=== PATIENT | male | born 1940 | race Two or more races ===

== ENCOUNTER → 2016-05-26 | Outpatient (CLI) | payer OTHER, MEDICAID | LOC: BHFA 13:15 | PROVIDERS: ATTEND Internal Medicine | DX: I48.91 Unspecified atrial fibrillation (principal); I25.10 Atherosclerotic heart disease of native coronary artery without angina pectoris ==

== ENCOUNTER → 2016-06-04 | Outpatient (CLI) | payer OTHER, MEDICAID | LOC: FIMAGING 13:05 | PROVIDERS: ATTEND Thoracic Surgery (Cardiothoracic Vascular Surgery) | DX: Z01.810 Encounter for preprocedural cardiovascular examination (principal); I25.10 Atherosclerotic heart disease of native coronary artery without angina pectoris; J98.4 Other disorders of lung; I48.91 Unspecified atrial fibrillation ==

== ENCOUNTER 2016-06-06 05:19 | Inpatient (IN) | payer OTHER, MEDICAID ==
[2016-06-04 15:35] LABS: % IMMATURE GRANULYOCYTES 0.5 % (0.0-1.1); ABSOLUTE IMMATURE GRANULOCYTES 0.05 10^3/uL (0.00-0.10); ADD DIFF? NO; ADD MORPH? NO; ADD SCAN? NO; ATYPICAL LYMPHOCYTE FLAG 0 (0-99); FRAGMENT RBC FLAG 0 (0-99); HEMATOCRIT 43.3 % (40.0-51.0); HEMOGLOBIN 14.4 g/dL (13.7-17.5); LEFT SHIFT FLG 0 (0-99); LIPEMIA HEMOLYSIS FLAG 80 (0-99); MEAN CELL HEMOGLOBIN CONCENTR. 33.3 g/dL (32.4-36.7); MEAN CELL VOLUME 87.1 fL (81.5-99.8); MEAN PLATELET VOLUME 10.2 fL (8.7-11.7); PLATELET CLUMPS FLAG 10 (0-99); PLATELET COUNT 257 10^3/uL (150-400); RED BLOOD CELL COUNT 4.97 10^6/uL (4.40-6.38); RED CELL DISTRIBUTION WIDTH 13.4 % (11.5-15.2)
[2016-06-04 15:40] LABS: ANION GAP 9 mEq/L (8-16); CALCIUM 9.8 mg/dL (8.5-10.4); CARBON DIOXIDE 25 mEq/l (22-31); CHLORIDE 103 mEq/L (97-110); CREATININE 0.6 mg/dL (0.7-1.3); GLOMERULAR FILTRATION RATE > 60; GLUCOSE 270 mg/dL (70-100); POTASSIUM 4.6 mEq/L (3.5-5.2); SODIUM 137 mEq/L (134-144)
[2016-06-04 17:35] LABS: HEMOGLOBIN A1C 11.7 % (4.0-6.0)
[2016-06-06] MEDS ORDERED: INSULIN REGULAR HUMAN 100 UNIT in NS 100 ML IV ONE (06:00)
[2016-06-06] MEDS ORDERED: MUPIROCIN 2% 22 GM OINT NS ONE (06:00)
[2016-06-06] MEDS ORDERED: MANNITOL 25% 12.5 GM/50 ML VIAL IV ONE (06:00)
[2016-06-06] MEDS ORDERED: ceFAZolin 2 GM/DEXTROSE 100 ML IV ONE (06:00)
[2016-06-06] MEDS ORDERED: NS 1,000 ML IV ONE (06:00)
[2016-06-06] MEDS ORDERED: LIDOCAINE 1% 5 ML SDV ID PRN (06:00)
[2016-06-06] MEDS ORDERED: PHENYLEPHRINE HCL 50 MG in NS 250 ML IV ONE (06:00)
[2016-06-06] MEDS ORDERED: CITRATE DEXTROSE SOLN 500 ML BAG MISC ONE (06:00)
[2016-06-06] MEDS ORDERED: AMINOCAPROIC ACID 5 GM/20 ML VIAL IV ONE (06:00)
[2016-06-06] MEDS ORDERED: NOREPINEPHRINE BITARTRATE 16 MG in NS 250 ML IV ONE (06:00)
[2016-06-06] MEDS ORDERED: SODIUM BICARBONATE 20 MEQ, LIDOCAINE 1% 10 ML in NORMOSOL-R 1,000 ML MISC ONE (06:00)
[2016-06-06] MEDS ORDERED: niCARdipine/NACL 200 ML IV SCH (06:00)
[2016-06-06] MEDS ORDERED: PROTAMINE SULFATE 50 MG/5 ML VIAL IVP ONE (06:20)
[2016-06-06] MEDS ORDERED: MILRINONE/DEXTROSE/100 ML BAG IV ONE (06:20)
[2016-06-06] MEDS ORDERED: ALBUMIN 5% 250 ML BOTTLE IV ONE (06:20)
[2016-06-06] MEDS ORDERED: LIDOCAINE 2% 100 MG/5 ML SYR IVP ONE (06:20)
[2016-06-06] MEDS ORDERED: DOPamine/DEXTROSE/250 ML BAG IV ONE (06:20)
[2016-06-06] MEDS ORDERED: NA BICARBONATE 50 MEQ/50 ML VIAL ONE (06:20)
[2016-06-06] MEDS ORDERED: POTASSIUM Cl (KCl) 20 MEQ/50 ML BAG IV ONE (06:20)
[2016-06-06] MEDS ORDERED: AMINOCAPROIC ACID 5 GM/20 ML VIAL ONE (06:20)
[2016-06-06] MEDS ORDERED: CALCIUM CHLORIDE 1 GM/10 ML INJ ONE (06:20)
[2016-06-06] MEDS ORDERED: niCARdipine/NACL/200 ML BAG IV ONE (06:20)
[2016-06-06] MEDS ORDERED: methylPREDNISolone SOD SUCC 1 GM/8 ML VIAL ONE (06:21)
[2016-06-06] MEDS ORDERED: ADENOSINE 6 MG/2 ML VIAL ONE (06:21)
[2016-06-06] MEDS ORDERED: AMIODARONE HCL 150 MG/3 ML VIAL ONE (06:21)
[2016-06-06] MEDS ORDERED: MAGNESIUM SULFATE 1 GM/2 ML VIAL ONE (06:21)
[2016-06-06] MEDS ORDERED: ceFAZolin 1 GM VIAL ONE (06:22)
[2016-06-06] MEDS ORDERED: HEPARIN 10,000 UNIT/10 ML MDV ONE (06:22)
[2016-06-06] MEDS ORDERED: LIDOCAINE 1% 5 ML SDV ONE (06:52)
[2016-06-06] MEDS ORDERED: SKIN ADHESIVE (DERMABOND) 1 EACH TP ONE (07:08)
[2016-06-06] MEDS ORDERED: PROPOFOL/EMULSION 500 MG/50 ML BOTTLE IV ONE (07:09)
[2016-06-06] MEDS ORDERED: fentaNYL 250 MCG/5 ML INJ ONE ×2 (07:09→09:18)
[2016-06-06] MEDS ORDERED: CITRATE DEXTROSE SOLN 500 ML BAG ONE (07:09)
[2016-06-06] MEDS ORDERED: MIDAZOLAM 2 MG/2 ML VIAL ONE (07:13)
[2016-06-06] MEDS ORDERED: ISOFLURANE 100 ML BOTTLE IH ONE (11:06)
[2016-06-06] MEDS ORDERED: fentaNYL 100 MCG/2 ML INJ ONE (12:15)
[2016-06-06] MEDS ORDERED: MINERAL OIL 10 ML VIAL TP ONE (12:27)
[2016-06-06] MEDS ORDERED: POLYETHYLENE GLYCOL 3350 17 GM PKT PO PRN (12:30)
[2016-06-06] MEDS ORDERED: ONDANSETRON 4 MG/2 ML VIAL IVP PRN (12:30)
[2016-06-06] MEDS ORDERED: MEPERIDINE 25 MG/ML SYR IVP PRN (12:30)
[2016-06-06] MEDS ORDERED: ONDANSETRON DISINTEGRATING 4 MG TAB PO PRN (12:30)
[2016-06-06] MEDS ORDERED: NS 1,000 ML IV SCH (12:30)
[2016-06-06] MEDS ORDERED: ACETAMINOPHEN 650 MG SUPP PR PRN (12:30)
[2016-06-06] MEDS ORDERED: PANTOPRAZOLE SODIUM 40 MG in NS 100 ML IV ONE (12:30)
[2016-06-06] MEDS ORDERED: CEPACOL LOZENGE PO PRN (12:30)
[2016-06-06] MEDS ORDERED: INSULIN REGULAR HUMAN 100 UNIT in NS 100 ML IV SCH (12:30)
[2016-06-06] MEDS ORDERED: BISACODYL 10 MG SUPP PR PRN (12:30)
[2016-06-06] MEDS ORDERED: PROPOFOL 200 MG/20 ML VIAL ONE (12:30)
[2016-06-06] MEDS ORDERED: D50W 25 GM/50 ML SYR IVP PRN (12:30)
[2016-06-06] MEDS ORDERED: MAGNESIUM HYDROXIDE 30 ML UDCUP PO PRN (12:30)
[2016-06-06] MEDS ORDERED: MAGNESIUM SULF 2 GM/WATER 50 ML IV ONE (12:30)
[2016-06-06] MEDS ORDERED: LACTULOSE 20 GM/30 ML UDCUP PO PRN (12:30)
[2016-06-06] MEDS ORDERED: SODIUM CL NASAL 45 ML BTL EACHNARE PRN (12:30)
[2016-06-06] MEDS ORDERED: METOCLOPRAMIDE 10 MG/2 ML VIAL IVP PRN (12:30)
[2016-06-06] MEDS ORDERED: POTASSIUM Cl (KCl) 50 ML IV PRN (12:30)
--- NOTE | 2016-06-06 13:18 | POSTOPPROG ---
Post Op Note Date of Operation: 06/06/16 Surgeon: Conrado Brown Shipfitter: Cindy Anesthesiologist: Marcos Anesthesia: GET(General Endotracheal) Pre-op Diagnosis: MR, morbid obesity, COPD Post-op Diagnosis: same with disruption dome of LA Procedure: MVR #27 Magna, reconstruct LA dome w bovine pericardium, close PFO Inf/Abcess present in the surg proc area at time of surgery?: No EBL: 100-500 Complications: LA dome disruption w retraction Drains: Other (3 blakes)
[2016-06-06] MEDS: fentaNYL 100 MCG/2 ML INJ IVP PRN (13:50)
[2016-06-06 13:54] LABS: BASE EXCESS -6.7 mEq/L (-2.5-2.5); BICARBONATE 21 mEq/L (22-26); MEASURED OXYGEN SATURATION 98 % (92-95); PCO2 56 mmHg (34-38); PO2 138 mmHg (65-75); TCO2 23 mEq/L (23-27)
--- NOTE | 2016-06-06 14:01 | GOP ---
[f rep st] OPERATIVE REPORT DATE OF OPERATION: 06/06/2016 SURGEON: Conrado Brown DO CREDIT REVIEW OFFICER: Gibran White PA-C. ANESTHESIOLOGIST: Vivek Rodríguez MD. PREOPERATIVE DIAGNOSIS: 1. Severe mitral insufficiency, asymptomatic. 2. Morbid obesity. 3. Chronic obstructive pulmonary disease. 4. Undiagnosed diabetes mellitus. POSTOPERATIVE DIAGNOSIS: 1. Severe mitral insufficiency, asymptomatic. 2. Morbid obesity. 3. Chronic obstructive pulmonary disease. 4. Undiagnosed diabetes mellitus. 5. Disruption of the left atrial dome. PROCEDURE PERFORMED: 1. Mitral valve replacement, chordal sparing with a #27 Magna bioprosthesis. 2. Closure of patent foramen ovale. 3. Bovine pericardial reconstruction of the dome of the left atrium and interatrial septum. FINDINGS: Patient was noted to have severe mitral insufficiency with symptoms of dyspnea on exertio n which had progressed. He was referred for surgical intervention. He appeared to have a small declan ral valve, without thickening with apparent chordal rupture of at least P1 and possibly P2 and P3. He was consented for surgery, with the interpreters brought to the operating room. He was intubated . Monitoring lines were placed by anesthesia including transesophageal echo. He was prepped and dr flako in sterile classical manner. DESCRIPTION OF PROCEDURE: Initially we planned to do a right anterior thoracotomy approach, minimal ly invasive. However his CT scan revealed significant descending thoracic aorta plaque as well as p laque in the ascending aorta, and because of his markedly distended abdomen from obesity and concern about exposure with diaphragm on this morbidly obese gentleman. For that reason, we proceeded with sternotomy. The patient's chest was opened. He was heparinized. The aorta on interrogation with intraoperative echo revealed an anterior plaque at approximately the distal segment of segment 2 and the proximal segment of segment 1, and also into the arch. Under echo guidance, an arterial site w as cannulated on the aorta away from the plaque where it was thin and pliable without difficulty. A long arterial plaque was placed distal to the left subclavian to avoid any water or any sandblastin g of the arch with potential embolization and stroke. Bicaval cannulas were placed with great diffi culty due to the patient's markedly increased AP diameter and marked abdominal distention. Exposure of the heart was very, very difficult. Left pericardial reflection was taken down to allow the hea rt to drop into the left chest for assistance in exposure and the right pericardium was tacked up un kelsey tension in order to rotate the heart leftward to facilitate that. Even with that exposure of th e pulmonary veins, it was very difficult. After cannulation, cardiopulmonary bypass was begun. Inninoska danya I was going to do fibrillatory arrest with exposure through the interatrial septum. We coole d the patient appropriately and when we fibrillated, he was placed in Trendelenburg. The caval tape s were placed around the both caval cannulas. The right atrium was opened and the interatrial septu m through the PFO which was patent and quite large was extended down onto the dome of the left atriu m. Retraction sutures were placed in a very friable thin-walled interatrial septum, particular up a round the aorta where the dome was quite thin. We then placed retractors exposing the valve with gr eat difficulty. 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 He had rup tured chordae to P1 with elongation of chordae to P2 and P3. Initially I attempted chordal reconstr uction of P1, however exposure was so difficult that I was concerned about adequate placement of cj uloplasty sutures. And for that reason, decided to replace it at which point, rewarming was begun. With great difficulty, we exposed the mitral valve and placed circumferential pledgeted mattress lilly tures in the anulus, and sized it for a 27 valve. During retraction, the retractor lip which had an upward lip to it, avulsed the dome of the left atrium from the aorta and from the mitral anulus. T his made exposure extremely difficult and time consuming. The valve was seated without difficulty. I then used a bovine pericardial patch to reconstruct the dome of the left atrium and the base of t he left atrium to the mitral valve anulus apparatus with bovine pericardial reinforcement on both si adonis. We then extended that patch on out to the dome of the left atrium and back toward the interatr ial septum. This was continued onto the septum and patched appropriately without difficulty. We th en had some separation of the right atrial edges. A 2nd patch was used to reconstruct the right atr ial portion adjacent to the aorta, bringing it back, tapering it at the appendage. Right atrium was then closed with the crossclamp off, at that point, with suction on the ascending aortic vent and i ntermittent aspiration through the LV apex. No bleeding was encountered. There was no shunt betwee n the atrial septa and no perivalvular leak with good function of the valve and good biventricular f unction. He was then easily weaned from bypass. The heparin was reversed with protamine. The rafa ji was removed and oversewn. Two ventricular pacing wires, 2 pleural and 1 mediastinal drain were placed. The thymic fat and pericardium were closed. Chest was closed with a Robicsek weave due to his morbid obesity, COPD with evidence of chronic lung disease in both pleura with some bullae and s ignificant osteoporosis. He has returned to the ICU in stable condition. /[id number]/MODL
[2016-06-06 14:07] LABS: O2 CONCENTRATIION 100 % (0-100); P/F RATIO 138 RATIO; SIMV YES
[2016-06-06 14:08] LABS: PATIENT RATE 14; PIP 253; PRESSURE SUPPORT 7
[2016-06-06] MEDS ORDERED: NS 500 ML IV PRN (14:11)
--- NOTE | 2016-06-06 14:16 | GCON ---
[f rep st] CONSULTATION HELP DESK COORDINATOR CONSULTATION. HISTORY OF PRESENT ILLNESS: Patient examined postoperatively after receiving a mitral valve replace ment. The patient is a 75-year-old white male, with a past medical history including diabetes, hype rlipidemia, hypertension, mitral regurg, and prostate cancer. He is again examined postoperatively after receiving a mitral valve replacement. The patient is currently sedated on mechanical ventilat ion. All history is gleaned from the medical record. Currently, he is resting comfortably. Blood pressure is currently stable. PAST MEDICAL HISTORY: Again significant for diabetes, hyperlipidemia, hypertension, mitral regurg, left anterior fascicular block, and prostate cancer. PAST SURGICAL HISTORY: Prostatectomy. ALLERGIES: No known to medications. MEDICATIONS: At home include aspirin, Humalog, Lantus, Lipitor, lisinopril/hydrochlorothiazide, mec lizine, metformin, Norvasc, pantoprazole, ranitidine, tramadol, and Vicodin. SOCIAL HISTORY: Previous smoker, none for many years. No significant alcohol use. He has excellen t family support. PHYSICAL EXAM: VITAL SIGNS: Blood pressure is 129/61, pulse is 64, respirations 14, temperature is afebrile. Oxygen saturation is 100% on mechanical ventilation. GENERAL: He is a well-developed, well-nourished, elderly male, who is resting comfortably in no acute distress. HEENT: Eyes VANESSA EOM I. Throat, endotracheal tube is in good position. NECK: Supple. No cervical adenopathy. HEART: Regular rate and rhythm with a 2/6 systolic murmur at the left sternal border, without radiation. LUNGS: Diminished breath sounds but no wheeze. ABDOMEN: Soft, nontender. Bowel sounds are presen t in all 4 quadrants. EXTREMITIES: There is no clubbing, cyanosis, or edema. LABORATORIES: White count is 9.7, hemoglobin 14, hematocrit 43, platelet count 257. Sodium 137, po tassium 4.6, chloride 103, CO2 is 25, BUN 19, creatinine 0.6, glucose is 270. IMPRESSION: 1. Status post mitral valve replacement. 2. Respiratory failure. Stable on mechanical ventilation. 3. Hypertension. 4. Diabetes. RECOMMENDATIONS: 1. Wean from mechanical ventilation as tolerated. 2. DVT and PE prophylaxis. Holding anticoagulation for now. 3. Stress ulcer prophylaxis. 4. Aggressive blood sugar control. 5. Out of bed when possible. 6. Early ambulation. 7. PT and OT. /[id number]/MODL
[2016-06-06] MEDS ORDERED: SODIUM BICARBONATE 50 MEQ/50 ML SYR ONE (14:19)
[2016-06-06] MEDS ORDERED: SODIUM BICARBONATE 50 MEQ/50 ML SYR IV ONE (14:30)
[2016-06-06] MEDS: ALBUMIN 5% 250 ML IV PRN ×4 (14:40→19:22)
[2016-06-06 15:20] LABS: BICARBONATE 20 mEq/L (22-26); MEASURED OXYGEN SATURATION 100 % (92-95); PCO2 35 mmHg (34-38); PO2 237 mmHg (65-75); TCO2 21 mEq/L (23-27)
[2016-06-06 15:21] LABS: O2 CONCENTRATIION 100 % (0-100); P/F RATIO 237 RATIO; PATIENT RATE 22; PIP 46; PRESSURE SUPPORT 7; SIMV YES
[2016-06-06] MEDS: CALCIUM CHLORIDE 1 GM/10 ML INJ IV ONE ×2 (16:00→17:19)
[2016-06-06] MEDS: KETOROLAC 15 MG/1 ML SDV IVP SCH ×3 (16:29→23:49)
[2016-06-06] MEDS ORDERED: ALBUMIN 5% 250 ML IV ONE (16:30)
[2016-06-06 18:01] LABS: BASE EXCESS -2.5 mEq/L (-2.5-2.5); BICARBONATE 21 mEq/L (22-26); MEASURED OXYGEN SATURATION 97 % (92-95); PCO2 31 mmHg (34-38); PO2 88 mmHg (65-75); TCO2 22 mEq/L (23-27)
[2016-06-06 18:02] LABS: O2 CONCENTRATIION 40 % (0-100); P/F RATIO 220 RATIO; SIMV YES
[2016-06-06 18:03] LABS: PATIENT RATE 22; PIP 23.9; PRESSURE SUPPORT 7
[2016-06-06 19:38] LABS: BASE EXCESS -1.8 mEq/L (-2.5-2.5); BICARBONATE 21 mEq/L (22-26); MEASURED OXYGEN SATURATION 98 % (92-95); PCO2 30 mmHg (34-38); PO2 105 mmHg (65-75); TCO2 22 mEq/L (23-27)
[2016-06-06 19:39] LABS: END TIDAL CO2 24; O2 CONCENTRATIION 40 % (0-100); P/F RATIO 263 RATIO; PRESSURE SUPPORT 7; SIMV YES
[2016-06-06] MEDS: MUPIROCIN 2% 22 GM OINT NS SCH (21:02)
[2016-06-06] MEDS: GABAPENTIN 300 MG CAP PO SCH (21:03)
[2016-06-06 21:17] LABS: BASE EXCESS -2.2 mEq/L (-2.5-2.5); BICARBONATE 21 mEq/L (22-26); MEASURED OXYGEN SATURATION 94 % (92-95); PCO2 34 mmHg (34-38); PO2 75 mmHg (65-75); TCO2 22 mEq/L (23-27)
[2016-06-06 21:19] LABS: END TIDAL CO2 28; O2 CONCENTRATIION 40 % (0-100); P/F RATIO 188 RATIO; PRESSURE SUPPORT 7; SIMV YES
[2016-06-06 23:03] LABS: HEMATOCRIT 30.2 % (40.0-51.0); MEAN CELL HEMOGLOBIN 28.6 pg (27.9-34.1); MEAN CELL HEMOGLOBIN CONCENTR. 33.1 g/dL (32.4-36.7); MEAN CELL VOLUME 86.3 fL (81.5-99.8); RED BLOOD CELL COUNT 3.5 10^6/uL (4.40-6.38); RED CELL DISTRIBUTION WIDTH 14.2 % (11.5-15.2)
[2016-06-06] MEDS ORDERED: ceFAZolin 2 GM/DEXTROSE 100 ML IV SCH (23:30)
[2016-06-06] MEDS: ceFAZolin 2 GM in D5W 100 ML IV SCH (23:49)
[2016-06-06] MEDS: DEXMEDETOMIDINE HCL 400 MCG in NS 100 ML IV SCH (23:50)
[2016-06-07 05:28] LABS: % IMMATURE GRANULYOCYTES 0.5 % (0.0-1.1); ABSOLUTE IMMATURE GRANULOCYTES 0.07 10^3/uL (0.00-0.10); ADD DIFF? NO; ADD MORPH? NO; ADD SCAN? NO; ATYPICAL LYMPHOCYTE FLAG 10 (0-99); FRAGMENT RBC FLAG 0 (0-99); HEMATOCRIT 30.9 % (40.0-51.0); HEMOGLOBIN 9.9 g/dL (13.7-17.5); LEFT SHIFT FLG 10 (0-99); LIPEMIA HEMOLYSIS FLAG 80 (0-99); MEAN CELL HEMOGLOBIN 29.1 pg (27.9-34.1); MEAN CELL VOLUME 90.9 fL (81.5-99.8); MEAN PLATELET VOLUME 10.4 fL (8.7-11.7); PLATELET CLUMPS FLAG 10 (0-99); PLATELET COUNT 171 10^3/uL (150-400); RED CELL DISTRIBUTION WIDTH 14.5 % (11.5-15.2)
[2016-06-07] MEDS: fentaNYL 100 MCG/2 ML INJ IVP PRN ×2 (05:30→06:54)
[2016-06-07 05:38] LABS: INR 1.36 (0.83-1.16); PROTIME(PATIENT) 16.8 SEC (12.0-15.0)
[2016-06-07 05:41] LABS: BASE EXCESS -2.9 mEq/L (-2.5-2.5); BICARBONATE 21 mEq/L (22-26); MEASURED OXYGEN SATURATION 95 % (92-95); PCO2 37 mmHg (34-38); PO2 80 mmHg (65-75); TCO2 22 mEq/L (23-27)
[2016-06-07 05:42] LABS: CPAP YES; END TIDAL CO2 29; O2 CONCENTRATIION 40 % (0-100); P/F RATIO 200 RATIO; PATIENT RATE 23; PRESSURE SUPPORT 7
[2016-06-07 05:45] LABS: ANION GAP 6 mEq/L (8-16); CARBON DIOXIDE 21 mEq/l (22-31); CHLORIDE 115 mEq/L (97-110); CREATININE 0.8 mg/dL (0.7-1.3); GLOMERULAR FILTRATION RATE > 60; GLUCOSE 133 mg/dL (70-100); POTASSIUM 4.4 mEq/L (3.5-5.2); SODIUM 142 mEq/L (134-144)
[2016-06-07] MEDS: KETOROLAC 15 MG/1 ML SDV IVP SCH ×3 (05:49→18:23)
[2016-06-07] MEDS: HEPARIN 5,000 UNIT/0.5 ML SYR SC SCH ×3 (05:50→22:00)
[2016-06-07] MEDS: ceFAZolin 2 GM in D5W 100 ML IV SCH ×3 (05:50→22:05)
--- NOTE | 2016-06-07 07:21 | SOAPPROG ---
SOAP Progress Note Assessment/Plan: POD#1 MV replacement with #27 Magna bioprosthesis with chordal sparing, closure PFO, reconstruction of left atrium dome and intra-atrial septum with bovine pericardium Severe symptomatic MR s/p MV replacement with bioprosthesis, closure PFO, LA dome and intra-atrial septum disruption with reconstruction. Weaned from CPB without need for inotropes/pressors/pacing or blood product transfusion. Low- dose Levophed started in ICU for low BP. Tolerated CPAP this am. - Plan for extubation this AM - Wean Levophed as tolerated - AL out once Levo off. FC out now. - CT to suction remain on suction d/t intermittent pleural air leak - Coumadin tonight, goal 2-3 x 3 months pending stable rhythm Acute blood loss anemia - Stable, no blood products transfused DM, poorly uncontrolled with neuropathy - Insulin gtt for now with further mgmt as per IM - Nutrition consult - Continue gabapentin 06/07/16 13:49 Subjective: Comfortable. Waiting for his hearing aids. Objective: Vital Signs Temp Pulse Resp BP Pulse Ox 38 C 80 21 H 100/52 L 94 06/07/16 06:00 06/07/16 06:00 06/07/16 06:00 06/07/16 06:00 06/07/16 06:00 Laboratory Results 06/07/16 05:15 06/07/16 05:15 06/06/16 06/07/16 06/08/16 05:59 05:59 05:59 Intake Total 1596 Output Total 1740 Balance -144 PT 16.8 SEC (12.0-15.0) H 06/07/16 05:15 INR 1.36 (0.83-1.16) H 06/07/16 05:15 Physical Exam - Physical Exam General Appearance: no apparent distress, obese EENT: No scleral icterus (R), No scleral icterus (L) Neck: normal inspection Respiratory: chest non-tender, lungs clear, No respiratory distress Cardiac/Chest: regular rate, rhythm, 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
[2016-06-07] MEDS: DEXMEDETOMIDINE HCL 400 MCG in NS 100 ML IV SCH (07:33)
[2016-06-07 08:51] LABS: POTASSIUM 4.4 mEq/L (3.5-5.2)
[2016-06-07] MEDS ORDERED: ASPIRIN 81 MG CHEWABLE TAB TUBE PRN (09:00)
--- NOTE | 2016-06-07 09:07 | PDINTPN ---
De Ionizer Operator Progress Note Assessment/Plan: Assessment/Plan: * S/P MV replacement * Resp failure-weaning parameters good. CPAP trial in progress -anticipate extubation today. -Anesthesia will be in attendance secondary to difficult airway * Probable NASIR * DM-continue aggressive BS control * HTN * VTE proph * Stress ulcer proph * Nutrition-assess post extubation Case discussed with RT and nursing 35 min of critical care time spent with patient Subjective: Awake and alert Objective: Vital Signs Temp Pulse Resp BP Pulse Ox 38.1 C 66 22 H 110/49 L 96 06/07/16 09:00 06/07/16 09:00 06/07/16 09:00 06/07/16 09:00 06/07/16 09:00 Laboratory Results 06/07/16 05:15 06/06/16 06/07/16 06/08/16 05:59 05:59 05:59 Intake Total 1596 Output Total 1740 120 Balance -144 -120 PT 16.8 SEC (12.0-15.0) H 06/07/16 05:15 INR 1.36 (0.83-1.16) H 06/07/16 05:15 CXR-reviewed by myself. ETT okay. CT's okay. - Time Spent With Patient Time Spent With Patient: 35 Physical Exam - Physical Exam General Appearance: alert, no apparent distress EENT: PERRL/EOMI, normal ENT inspection, ET tube Neck: non-tender, full range of motion Respiratory: crackles (few basilar), No respiratory distress, No stridor, No wheezing Cardiac/Chest: normal peripheral pulses, regular rate, rhythm, systolic murmur Peripheral Pulses: 2+: carotid (R), carotid (L), femoral (R), femoral (L), dorsalis-pedis (R), dorsalis-pedis (L) Abdomen: normal bowel sounds, non-tender, soft Male Genitalia: deferred Rectal: deferred Skin: normal color, warm/dry Extremities: normal range of motion, non-tender Neuro/Psych: alert ICD10 Worksheet Patient Problems: Problems Problem Status Onset Acute blood loss anemia Acute S/P mitral valve replacement with bioprosthetic valve Acute ~06/06/16 Severe mitral regurgitation Acute
[2016-06-07 09:31] LABS: BASE EXCESS -3.4 mEq/L (-2.5-2.5); BICARBONATE 21 mEq/L (22-26); MEASURED OXYGEN SATURATION 98 % (92-95); PCO2 35 mmHg (34-38); PO2 94 mmHg (65-75); TCO2 22 mEq/L (23-27)
[2016-06-07 09:57] LABS: CPAP YES; O2 CONCENTRATIION 40 % (0-100); P/F RATIO 235 RATIO
[2016-06-07 09:58] LABS: PATIENT RATE 24; PRESSURE SUPPORT 7
[2016-06-07] MEDS ORDERED: D50W 25 GM/50 ML SYR IVP PRN (12:15)
[2016-06-07] MEDS: ASPIRIN 81 MG CHEWABLE TAB PO SCH (12:15)
[2016-06-07] MEDS: PANTOPRAZOLE SODIUM 40 MG TAB PO SCH (12:15)
[2016-06-07] MEDS: MUPIROCIN 2% 22 GM OINT NS SCH ×2 (12:16→22:00)
[2016-06-07] MEDS: INSULIN GLARGINE 100 UNITS/ML SYRINGE SC SCH ×2 (13:58→22:00)
[2016-06-07] MEDS: traMADol 50 MG TAB PO PRN ×3 (15:27→22:00)
--- NOTE | 2016-06-07 15:35 | GCON ---
[f rep st] CONSULTATION DATE OF CONSULTATION: 06/07/2016 REFERRING PHYSICIAN: Conrado Brown DO REASON FOR CONSULTATION: Postoperative glycemic control. HISTORY OF PRESENT ILLNESS: This is a 75-year-old male, who is postoperative day one mitral valve r eplacement and closure of a patent foramen ovale, who I have been asked to see for postoperative gly cemic control. The patient has a long-standing history of type 2 diabetes. The patient was seen with a [facility] park interpreter present. The patient tells me that he has been compliant with his home insulin reg polo which consists of 30 units of glargine at bedtime and 30 units of lispro before meals. He also takes metformin. The patient is followed at a community clinic where they have been having trouble getting his sugars under control. He says over the past few months his blood sugars have been in th e 200 to 300 range during the day despite his insulin administration. His fasting morning blood sug ar is usually between 90 and 110. He states he is compliant with a diabetic diet. During his hospital stay, a hemoglobin A1c was done which was significantly elevated at 11.7. The p atient does seem to be rather eager to get better control of his sugars and has been referred to an circle edger by his primary care provider, but has not yet established care with them. PAST MEDICAL HISTORY: 1. Diabetes mellitus. 2. Hyperlipidemia. 3. Hypertension. 4. Severe mitral regurgitation. 5. Left anterior fascicular block. 6. Prostate cancer. PAST SURGICAL HISTORY: Prostatectomy. MEDICATIONS: Home medications were reviewed. Refer to [employer] for details. ALLERGIES: No known drug allergies. SOCIAL HISTORY: The patient does have a history of tobacco use. He denies any alcohol or illicit d rug use. FAMILY HISTORY: Reviewed and noncontributory. REVIEW OF SYSTEMS: A comprehensive 10-point review of systems was done and is negative except for a s mentioned in the HPI. PHYSICAL EXAM: VITAL SIGNS: Blood pressure 105/47, pulse 66, respiratory rate 20, O2 saturation 95 % on 3 L, temperature 38.2. GENERAL: No acute distress. HEAD: Normocephalic, atraumatic. Eyes a re PERRLA. Sclerae anicteric. MOUTH: Moist mucous membranes. NECK: Supple. No lymphadenopathy. CARDIOVASCULAR: S1-S2 with muffled heart sounds. A sternal scar is closed without signs of infec tion. PULMONARY: Lungs are clear with diminished breath sounds in bilateral bases. No wheezes, ra les, or rhonchi. ABDOMEN: Soft, with hypoactive bowel sounds. There is no guarding or rebound ten derness. EXTREMITIES: No clubbing or cyanosis. NEURO: Cranial nerves 2-12 grossly intact. No fo santiago motor or sensory deficits. SKIN: Clear, no rashes. DIAGNOSTICS: WBC is 13.22, hemoglobin 9.9, hematocrit 30.9, platelets 171. INR 1.36, sodium 142, p otassium 4.4, chloride 115, CO2 21, BUN 21, creatinine 0.8, glucose 133, hemoglobin A1c was 11.7. T he patient's point of care glucose has ranged from 129 to a high of 232 postoperatively. Chest x-ra y done today shows a reposition right internal jugular line with bibasilar atelectasis. ASSESSMENT AND PLAN: This is a 75-year-old male, postoperative day one mitral valve replacement and closure of a patent foramen ovale who I have been asked to see for: 1. Uncontrolled diabetes mellitus: The patient has been on an insulin drip postoperatively. The p atient is just now getting ready to eat. At this point, we will transition the patient back to a lilly bcu insulin regime. Will resume his home dose of glargine at 30 units daily and continue preprandia l insulin with correctional insulin as indicated. Will hold his metformin for at least one more day in the postoperative setting to ensure he continues to improve. Thank you for allowing me to participate in the care of the patient. The hospitalist service will c julia to follow along with you. /[id number]/MODL
[2016-06-07] MEDS ORDERED: WARFARIN SODIUM 5 MG TAB PO ONE (16:00)
[2016-06-07] MEDS: INSULIN LISPRO 100 UNIT/ML SC SCH ×2 (18:22→18:23)
[2016-06-07] MEDS: HYDROCODONE/APAP 5/325 TAB PO PRN (19:53)
[2016-06-07] MEDS: SENNOSIDES/DOCUSATE SODIUM TAB PO SCH (19:54)
[2016-06-07] MEDS: GABAPENTIN 300 MG CAP PO SCH (20:05)
[2016-06-07] MEDS: oxyCODONE IR 5 MG TAB PO PRN (23:45)
[2016-06-08] MEDS: HYDROCODONE/APAP 5/325 TAB PO PRN ×2 (01:42→07:59)
[2016-06-08] MEDS: traMADol 50 MG TAB PO PRN (03:51)
[2016-06-08 05:23] LABS: % IMMATURE GRANULYOCYTES 0.5 % (0.0-1.1); ABSOLUTE IMMATURE GRANULOCYTES 0.07 10^3/uL (0.00-0.10); ADD DIFF? NO; ADD MORPH? NO; ADD SCAN? NO; ATYPICAL LYMPHOCYTE FLAG 0 (0-99); FRAGMENT RBC FLAG 0 (0-99); HEMATOCRIT 30.7 % (40.0-51.0); HEMOGLOBIN 9.6 g/dL (13.7-17.5); LEFT SHIFT FLG 10 (0-99); LIPEMIA HEMOLYSIS FLAG 80 (0-99); MEAN CELL HEMOGLOBIN CONCENTR. 31.3 g/dL (32.4-36.7); MEAN CELL VOLUME 92.7 fL (81.5-99.8); MEAN PLATELET VOLUME 10.9 fL (8.7-11.7); PLATELET CLUMPS FLAG 0 (0-99); PLATELET COUNT 173 10^3/uL (150-400); RED BLOOD CELL COUNT 3.31 10^6/uL (4.40-6.38); RED CELL DISTRIBUTION WIDTH 15.2 % (11.5-15.2)
[2016-06-08 05:38] LABS: ANION GAP 8 mEq/L (8-16); CALCIUM 8.2 mg/dL (8.5-10.4); CARBON DIOXIDE 23 mEq/l (22-31); CHLORIDE 113 mEq/L (97-110); CREATININE 0.9 mg/dL (0.7-1.3); GLOMERULAR FILTRATION RATE > 60; GLUCOSE 144 mg/dL (70-100); POTASSIUM 4.6 mEq/L (3.5-5.2); SODIUM 144 mEq/L (134-144)
[2016-06-08 05:46] LABS: INR 1.74 (0.83-1.16); PROTIME(PATIENT) 20.4 SEC (12.0-15.0)
[2016-06-08] MEDS: ceFAZolin 2 GM in D5W 100 ML IV SCH (06:25)
[2016-06-08] MEDS: HEPARIN 5,000 UNIT/0.5 ML SYR SC SCH ×3 (06:25→21:19)
[2016-06-08] MEDS: INSULIN LISPRO 100 UNIT/ML SC SCH ×6 (08:02→18:04)
[2016-06-08] MEDS: PANTOPRAZOLE SODIUM 40 MG TAB PO SCH (08:04)
[2016-06-08] MEDS: ATORVASTATIN CALCIUM 20 MG TAB PO SCH (08:04)
[2016-06-08] MEDS: ASPIRIN 81 MG CHEWABLE TAB PO SCH (08:04)
--- NOTE | 2016-06-08 09:05 | SOAPPROG ---
SOAP Progress Note Assessment/Plan: POD#2 MV replacement with #27 Magna bioprosthesis with chordal sparing, closure PFO, reconstruction of left atrium dome and intra-atrial septum with bovine pericardium Severe symptomatic MR s/p MV replacement with bioprosthesis, closure PFO, LA dome and intra-atrial septum disruption with reconstruction. Weaned from CPB without need for inotropes/pressors/pacing or blood product transfusion. Low- dose Levophed started in ICU for low BP and weaned without difficulty. Extubated in ICU on POD #1 and transferred to PCU - CTs to bulb suction / d/c TLC due to being yanked partly out - Coumadin goal 2-3 x 3 months - BB not started due to HR in 60s - Lasix prn - ECHO tomorrow to evaluate valve function Acute blood loss anemia - Stable, no blood products transfused DM, poorly uncontrolled with neuropathy - Mgmt as per IM - Nutrition consult - Continue gabapentin Subjective: c/o pain Objective: Vital Signs Temp Pulse Resp BP Pulse Ox 36.7 C 69 20 150/62 H 90 L 06/08/16 07:31 06/08/16 07:31 06/08/16 07:31 06/08/16 07:31 06/08/16 07:31 Laboratory Results 06/08/16 03:45 06/08/16 05:00 06/07/06/08/16 06/09/16 05:59 05:59 05:59 Intake Total 1596 2058.2 Output Total 1740 880 300 Balance -144 1178.2 -300 PT 20.4 SEC (12.0-15.0) H 06/08/16 05:30 INR 1.74 (0.83-1.16) H 06/08/16 05:30 Physical Exam - Physical Exam General Appearance: WD/WN, alert, no apparent distress, obese EENT: No scleral icterus (R), No scleral icterus (L) Neck: normal inspection Respiratory: No respiratory distress Cardiac/Chest: regular rate, rhythm Abdomen: non-tender, soft, distended Skin: normal color, warm/dry Extremities: pedal edema (trace b/l) Neuro/Psych: no motor/sensory deficits, alert, normal mood/affect, oriented x 3 ICD10 Worksheet Patient Problems: Problems Problem Status Onset Diabetes mellitus out of control Acute Acute blood loss anemia Acute S/P mitral valve replacement with bioprosthetic valve Acute ~06/06/16 Severe mitral regurgitation Acute
[2016-06-08] MEDS: oxyCODONE IR 5 MG TAB PO PRN ×2 (12:10→21:19)
[2016-06-08] MEDS: SENNOSIDES/DOCUSATE SODIUM TAB PO SCH ×2 (12:10→21:19)
[2016-06-08] MEDS: MUPIROCIN 2% 22 GM OINT NS SCH (12:11)
[2016-06-08] MEDS: KETOROLAC 30 MG/1 ML SDV IVP PRN ×2 (13:18→21:18)
[2016-06-08] MEDS: FUROSEMIDE 40 MG TAB PO SCH (15:18)
--- NOTE | 2016-06-08 15:21 | HOSPPROG ---
Hospitalist Progress Note Assessment/Plan: 75 y/o male pod #2 mitral valve replacement and PFO closure with # uncontrolled DM (A1c 11.7) -increase glargine to 35units qhs with a goal fasting morning blood sugar 90- 110 -cont preprandial insulin and correctional insulin as scheduled -will resume metformin once tolerating pos Will continue to follow Subjective: pt is resting comfortably and sleeping Objective: Vital Signs Temp Pulse Resp BP Pulse Ox 37.1 C 61 20 124/60 H 91 L 06/08/16 12:31 06/08/16 11:37 06/08/16 11:37 06/08/16 11:37 06/08/16 11:37 Laboratory Results 06/08/16 03:45 06/08/16 05:00 06/07/16 06/08/16 06/09/16 05:59 05:59 05:59 Intake Total 1596 2058.2 Output Total 1740 880 300 Balance -144 1178.2 -300 PT 20.4 SEC (12.0-15.0) H 06/08/16 05:30 INR 1.74 (0.83-1.16) H 06/08/16 05:30 Laboratory Tests 06/07/16 06/07/16 06/07/16 11:53 17:55 20:52 Glucose POC Glucose 104 H 176 H 147 H 06/08/16 06/08/16 06/08/16 05:00 07:40 12:35 Glucose 144 H POC Glucose 206 H 183 H - Physical Exam Constitutional: no apparent distress, appears nourished, not in pain ICD10 Worksheet Patient Problems: Problems Problem Status Onset Diabetes mellitus out of control Acute Acute blood loss anemia Acute S/P mitral valve replacement with bioprosthetic valve Acute ~06/06/16 Severe mitral regurgitation Acute
[2016-06-08] MEDS ORDERED: WARFARIN SODIUM 2.5 MG TAB PO ONE (17:00)
[2016-06-08] MEDS ORDERED: ALPRAZolam 0.5 MG TAB PO PRN (17:11)
[2016-06-08] MEDS ORDERED: WARFARIN SODIUM 2 MG TAB PO ONE (18:00)
[2016-06-08] MEDS ORDERED: ALPRAZolam 0.25 MG TAB PO PRN (21:00)
[2016-06-08] MEDS: GABAPENTIN 300 MG CAP PO SCH (21:19)
[2016-06-08] MEDS: INSULIN GLARGINE 100 UNITS/ML SYRINGE SC SCH (21:25)
[2016-06-08] MEDS ORDERED: NALOXONE HCL 0.4 MG/ML INJ IVP ONE (22:41)
[2016-06-08] MEDS ORDERED: FLUMAZENIL 0.5 MG/5 ML MDV IVP ONE (22:43)
[2016-06-09] MEDS: KETOROLAC 30 MG/1 ML SDV IVP PRN ×2 (03:18→08:58)
[2016-06-09 04:02] LABS: % IMMATURE GRANULYOCYTES 0.5 % (0.0-1.1); ABSOLUTE IMMATURE GRANULOCYTES 0.05 10^3/uL (0.00-0.10); ADD DIFF? NO; ADD MORPH? NO; ADD SCAN? NO; ATYPICAL LYMPHOCYTE FLAG 10 (0-99); FRAGMENT RBC FLAG 0 (0-99); HEMATOCRIT 30.1 % (40.0-51.0); HEMOGLOBIN 9.3 g/dL (13.7-17.5); LEFT SHIFT FLG 10 (0-99); LIPEMIA HEMOLYSIS FLAG 80 (0-99); MEAN CELL HEMOGLOBIN 29.1 pg (27.9-34.1); MEAN CELL HEMOGLOBIN CONCENTR. 30.9 g/dL (32.4-36.7); MEAN CELL VOLUME 94.1 fL (81.5-99.8); MEAN PLATELET VOLUME 10.6 fL (8.7-11.7); PLATELET CLUMPS FLAG 0 (0-99); PLATELET COUNT 177 10^3/uL (150-400); RED CELL DISTRIBUTION WIDTH 14.8 % (11.5-15.2)
[2016-06-09 04:29] LABS: INR 2.14 (0.83-1.16); PROTIME(PATIENT) 24.1 SEC (12.0-15.0)
[2016-06-09 04:39] LABS: ANION GAP 7 mEq/L (8-16); CALCIUM 8.4 mg/dL (8.5-10.4); CARBON DIOXIDE 25 mEq/l (22-31); CHLORIDE 114 mEq/L (97-110); CREATININE 0.9 mg/dL (0.7-1.3); GLOMERULAR FILTRATION RATE > 60; GLUCOSE 117 mg/dL (70-100); POTASSIUM 4.3 mEq/L (3.5-5.2); SODIUM 146 mEq/L (134-144)
[2016-06-09] MEDS: HEPARIN 5,000 UNIT/0.5 ML SYR SC SCH (06:22)
--- NOTE | 2016-06-09 07:43 | CPEKG ---
Heart Rate: 64 RR Interval: 938 QRSD Interval: 104 QT Interval: 444 QTC Interval: 458 QRS [place]: -56 T Wave [place]: 103 EKG Severity - ABNORMAL ECG - EKG Impression: ATRIAL FIBRILLATION EKG Impression: LEFT ANTERIOR FASCICULAR BLOCK Electronically Signed By: Deion Newman 09-Jun-2016 07:48:20
--- NOTE | 2016-06-09 08:42 | SOAPPROG ---
SOAP Progress Note Assessment/Plan: Assessment: POD#3 MVR #27 Magna bioprosthesis, closure PFO, reconstruction of LA dome and inter-atrial septum with bovine pericardium Sx severe MR w incidental PFO - Myxomatous appearing valve with PL chordal rupture, but exposure difficult and complicated by disruption of LA and inter- atrial septum. Mitral repair abandoned and tissue valve implanted. Patch repair required to reconstruct LA and septum. Hemodynamically stable early postop course. No prolonged vasoactive support or backup pacing. Lingering SB with pronounced 1st degree AVB and BB avoided. No significant volume overload. Antithrombotic prophylaxis x 3 mo with coumadin. Target INR 2-3. Postoperative TIA vs narc overuse - Transferred back to the ICU yest for altered mental status. Recovery of orientation and purposeful mvmt of limbs post narcan and romazicon. CT head ordered. All narcs/sedatives on hold. Aspiration and fall precautions instituted. Liberalized BP for now. Minimize disrupted sleep. Acute blood loss anemia - Stable. No blood products transfused. DM2 w neuropathy - Poor control by preop A1c of 11.7%. Postop hyperglycemia managed with insulin gtt. IM to assist with transition to basal/prandial/SSI and OHA. Gabapentin on hold pending neuro stability. Plan: Ck head CT. Remove chest tubes. Wrap and cap vwires. NPO pending bedside swallow eval. Insulin per IM. IV lasix 40mg x 1. Stop SQ heparin. Coumadin 1 mg today. Baseline postop echo. PT/OT eval. 06/09/16 08:41 Subjective: AAO x 3 (son remarks he could name all his children and birthdates). MAEE incl left arm and leg. Objective: Vital Signs Temp Pulse Resp BP Pulse Ox 36.8 C 60 20 141/54 H 95 06/08/16 22:18 06/09/16 06:00 06/09/16 06:00 06/09/16 06:00 06/09/16 06:00 Laboratory Results 06/09/16 03:27 06/09/16 03:27 06/08/16 06/09/16 06/10/16 05:59 05:59 05:59 Intake Total 2058.2 0 Output Total 880 550 180 Balance 1178.2 -550 -180 PT 24.1 SEC (12.0-15.0) H 06/09/16 03:27 INR 2.14 (0.83-1.16) H 06/09/16 03:27 Significant improvement in lucidity post narc reversal. HR predominantly 60s with 1st degree AVB. Stable suppl O2 req. CXR-> hypoventilation, tubes in good position, no PTX, mild pulm vasc congestion CTOP thin. Labs ok. INR quick to rise Physical Exam - Physical Exam General Appearance: alert, no apparent distress, other (cooperative) Respiratory: lungs clear (grossly), other (Blakes x 3 y-d to pleurovac, serosang drainage, no air leak) Cardiac/Chest: regular rate, rhythm, other (Sternotomy CDI) Abdomen: non-tender, soft Skin: warm/dry Extremities: swelling (1+ gen) Neuro/Psych: oriented x 3, other (Facies symmetric, speech clear, bilateral arm and leg mvmt upon request) ICD10 Worksheet Patient Problems: Problems Problem Status Onset Diabetes mellitus out of control Acute Acute blood loss anemia Acute S/P mitral valve replacement with bioprosthetic valve Acute ~06/06/16 Severe mitral regurgitation Acute
[2016-06-09] MEDS ORDERED: LISINOPRIL 5 MG TAB PO SCH (09:00)
[2016-06-09] MEDS ORDERED: FUROSEMIDE 40 MG/4 ML VIAL IVP ONE (09:00)
[2016-06-09] MEDS ORDERED: POTASSIUM CL 20 MEQ/15 ML UDCUP PO SCH (09:00)
[2016-06-09] MEDS: INSULIN LISPRO 100 UNIT/ML SC SCH ×3 (09:36→19:20)
--- NOTE | 2016-06-09 11:16 | ECHO ---
[id number] + + [address] : : [place] [address] : : [phone] + + Adult Echocardiographic Report + + :Name: Ilene AGUILAR Date: 06/09/2016 07:40 AM : : Hospital Admission Number: [id number] L ocation: 250: :: 1940 Gender: Male Height: 6 9 in : :Age: 75 yrs Race: [facility] Weight: 2 26 lb : :Reason For Study: S/P MVR with #27 magna bioprosthesis/eval valve : :function BSA: 2.2 meters2 : + + MMode/2D Measurements \T\ Calculations LVIDd: 3.9 cm EDV(Teich): 64.4 ml Ao root diam: 3.8 cm Normal Measurement Values: + + :LVIDd (3.5-5.7cm) IVSd (0.6-1.1cm) LVPWd (0.6-1.1cm) Aortic Root (2.0-3.7cm)Left Atrium (1.5-4.0cm): :LV Vol(d) (76-115ml) LV Vol(s) (29-48ml) Ejec Fraction (50-65%)PV Omar (0.6- 1.2m/s) TV Omar (0.4-1.0m/s) : :MV E Omar (0.8-1.0m/s)MV A Omar (0.3-1.0m/s)LVOT Omar (0.7-1.2m/s) Asc Ao Omar ( 0.9-1.8m/s) : + + Doppler Measurements \T\ Calculations MV E max omar: MV V2 mean: MV P1/2t max omar: Ao mean P.7 cm/sec 96.9 cm/sec 192.7 cm/sec 8.3 mmHg MV A max omar: MV mean PG: MV P1/2t: 111.8 msec Ao V2 mean: 107.2 cm/sec 3.7 mmHg MVA(P1/2t): 2.0 cm2 139.4 cm/sec MV E/A: 1.8 MV V2 VTI: MV dec slope: Ao V2 VTI: 32.9 cm MV dec time: 70.3 cm 505.0 cm/sec2 0.29 sec LV V1 max: 131.6 cm/sec LV V1 max P.9 mmHg LV V1 mean P.3 mmHg LV V1 mean: 80.5 cm/sec LV V1 VTI: 22.1 cm Left Ventricle The left ventricle is normal in size. There is normal left ventricular wall thickness. Left ventricular systolic function is normal. Ejection Fraction = 60-65%. Septal motion is consistent with post-operative state. Right Ventricle The right ventricle is normal in size and function. Atria The left atrium is moderate to severely dilated. Right atrial size is normal. The interatrial septum is intact with no evidence for an atrial septal defect. Mitral Valve There is no mitral regurgitation noted. There is a bioprosthetic mitral valve. MV max PG is 13mmHG. MV mean PG is 4mmHG. Tricuspid Valve The tricuspid valve is not well visualized. There is trace tricuspid regurgitation. Aortic Valve The aortic valve opens well. There is no aortic stenosis. There is no aortic insufficiency. Pulmonic Valve The pulmonic valve is not well visualized. There is no pulmonic valvular regurgitation. Great Vessels The aortic root is normal size. Pericardium/Pleural There is no pericardial effusion. Conclusion A complete two-dimensional transthoracic echocardiogram was performed (2D, M-mode, Doppler and color flow Doppler). Left ventricular systolic function is normal. Ejection Fraction = 60-65%. Septal motion is consistent with post-operative state. The left atrium is moderate to severely dilated. There is a bioprosthetic mitral valve. MV max PG is 13mmHG. MV mean PG is 4mmHG. There is no mitral regurgitation noted. There is trace tricuspid regurgitation. Final Reading Physician: Yelena Alfredo signed on 06/09/2016 11:15 AM Ordering Physician: Gibran White Performed By: Sheeba Mckeon RDCS
[2016-06-09] MEDS: SENNOSIDES/DOCUSATE SODIUM TAB PO SCH ×2 (12:12→21:06)
[2016-06-09] MEDS: ATORVASTATIN CALCIUM 20 MG TAB PO SCH (12:12)
[2016-06-09] MEDS: ASPIRIN 81 MG CHEWABLE TAB PO SCH (12:12)
[2016-06-09] MEDS: PANTOPRAZOLE SODIUM 40 MG TAB PO SCH (12:12)
[2016-06-09] MEDS: FUROSEMIDE 40 MG TAB PO SCH (12:17)
[2016-06-09] MEDS ORDERED: FUROSEMIDE 20 MG/2 ML VIAL ONE (12:37)
[2016-06-09] MEDS ORDERED: FUROSEMIDE 40 MG/4 ML VIAL ONE (12:52)
[2016-06-09] MEDS: POTASSIUM Cl (KCl) 100 ML IV SCH ×2 (12:52→14:00)
--- NOTE | 2016-06-09 13:20 | PDINTPN ---
Wing Scorer Progress Note Assessment/Plan: Assessment/plan: 75 M s/p MV redo with TV annuloplasty complicated by mental status changes, likely related to over-sedation. * Altered mental status with ?focal left sided weakness versus confusion or cooperation. 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 * dm- controlled on lantus 35 units daily plus SSI * nasreen?- may need outpatient sleep study. Will clarify * htn- controlled * s/p MVR- clinically stable. No TR on repeat echo * Subjective: denies complaints Objective: Vital Signs Temp Pulse Resp BP Pulse Ox 37.4 C 66 19 138/55 H 97 06/09/16 12:00 06/09/16 12:00 06/09/16 12:00 06/09/16 12:00 06/09/16 12:00 Laboratory Results 06/09/16 03:27 06/09/16 03:27 06/08/16 06/09/16 06/10/16 05:59 05:59 05:59 Intake Total 2058.2 0 Output Total 880 550 180 Balance 1178.2 -550 -180 PT 24.1 SEC (12.0-15.0) H 06/09/16 03:27 INR 2.14 (0.83-1.16) H 06/09/16 03:27 Physical Exam - Physical Exam General Appearance: alert, no apparent distress EENT: PERRL/EOMI Neck: full range of motion, supple, normal inspection Respiratory: lungs clear, normal breath sounds, No respiratory distress, No rhonchi Cardiac/Chest: normal peripheral pulses, regular rate, rhythm, No edema Abdomen: non-tender, soft, No distended, No guarding Skin: normal color, warm/dry, No cyanosis Lymphatic: no adenopathy Extremities: No pedal edema Neuro/Psych: oriented x 3, motor weakness (?transient left sided weakness) ICD10 Worksheet Patient Problems: Problems Problem Status Onset Diabetes mellitus out of control Acute Acute blood loss anemia Acute S/P mitral valve replacement with bioprosthetic valve Acute ~06/06/16 Severe mitral regurgitation Acute
--- NOTE | 2016-06-09 14:36 | HOSPPROG ---
Hospitalist Progress Note Subjective: appears to have waxing waning symptoms of confusion and left-sided weakness Objective: Vital Signs Temp Pulse Resp BP Pulse Ox 37.4 C 66 20 142/47 H 96 06/09/16 12:00 06/09/16 13:00 06/09/16 13:00 06/09/16 13:00 06/09/16 13:00 Laboratory Results 06/09/16 03:27 06/09/16 03:27 06/08/16 06/09/16 06/10/16 05:59 05:59 05:59 Intake Total 2058.2 0 Output Total 880 550 180 Balance 1178.2 -550 -180 PT 24.1 SEC (12.0-15.0) H 06/09/16 03:27 INR 2.14 (0.83-1.16) H 06/09/16 03:27 - Physical Exam Constitutional: no apparent distress, appears nourished, not in pain Eyes: anicteric sclera, EOMI Ears, Nose, Mouth, Throat: moist mucous membranes, hearing normal, ears appear normal Cardiovascular: regular rate and rhythym, No edema Respiratory: no respiratory distress, no rales or rhonchi, clear to auscultation Gastrointestinal: normoactive bowel sounds, soft, non-tender abdomen, no palpable masses Skin: warm Neurologic: other ( response to questions, slight left facial droop, little bit more weak on the left) Psychiatric: encephalopathic ICD10 Worksheet Patient Problems: Problems Problem Status Onset Diabetes mellitus out of control Acute Acute blood loss anemia Acute S/P mitral valve replacement with bioprosthetic valve Acute ~06/06/16 Severe mitral regurgitation Acute
--- NOTE | 2016-06-09 14:40 | HOSPPROG ---
Hospitalist Progress Note Assessment/Plan: 75 y/o male pod #2 mitral valve replacement and PFO closure with # uncontrolled DM (A1c 11.7) - blood sugars are better with Lantus -continue to watch * encephalopathy with waxing waning left sided weakness * CT head negative for acute changes * consider MRI at some point * status post mitral valve replacement Objective: Vital Signs Temp Pulse Resp BP Pulse Ox 37.4 C 66 20 142/47 H 96 06/09/16 12:00 06/09/16 13:00 06/09/16 13:00 06/09/16 13:00 06/09/16 13:00 Laboratory Results 06/09/16 03:27 06/09/16 03:27 06/08/16 06/09/16 06/10/16 05:59 05:59 05:59 Intake Total 2058.2 0 Output Total 880 550 180 Balance 1178.2 -550 -180 PT 24.1 SEC (12.0-15.0) H 06/09/16 03:27 INR 2.14 (0.83-1.16) H 06/09/16 03:27 ICD10 Worksheet Patient Problems: Problems Problem Status Onset Diabetes mellitus out of control Acute Acute blood loss anemia Acute S/P mitral valve replacement with bioprosthetic valve Acute ~06/06/16 Severe mitral regurgitation Acute
[2016-06-09 16:24] LABS: POTASSIUM 4.3 mEq/L (3.5-5.2)
[2016-06-09] MEDS ORDERED: WARFARIN SODIUM 1 MG TAB PO ONE (17:00)
[2016-06-09] MEDS: ACETAMINOPHEN 325 MG TAB PO PRN (21:06)
[2016-06-09] MEDS ORDERED: ALBUTEROL 3 ML DEYVIAL IH PRN (21:09)
[2016-06-10 05:42] LABS: ALANINE AMINOTRANSFERASE 38 IU/L (21-72); ALBUMIN 2.8 g/dL (3.5-5.0); ALKALINE PHOSPHATASE 58 IU/L (38-126); ANION GAP 11 mEq/L (8-16); ASPARTATE AMINOTRANSFERASE 44 IU/L (17-59); BILIRUBIN,TOTAL 1.3 mg/dL (0.1-1.4); CALCIUM 8.6 mg/dL (8.5-10.4); CARBON DIOXIDE 25 mEq/l (22-31); CHLORIDE 114 mEq/L (97-110); CREATININE 0.8 mg/dL (0.7-1.3); GLOMERULAR FILTRATION RATE > 60; GLUCOSE 214 mg/dL (70-100); POTASSIUM 4.1 mEq/L (3.5-5.2); SODIUM 150 mEq/L (134-144); TOTAL PROTEIN 5.5 g/dL (6.3-8.2)
--- NOTE | 2016-06-10 07:53 | SOAPPROG ---
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 Mitral repair abandoned and tissue valve implanted. Patch repair required to reconstruct LA and septum. Hemodynamically stable early postop course. No prolonged vasoactive support or backup pacing. Lingering SB with pronounced 1st degree AVB and BB avoided. No significant volume overload. Antithrombotic prophylaxis x 3 mo with coumadin. Target INR 2-3. Postoperative TIA vs narc overuse - Transferred back to the ICU POD#2 for altered mental status. Recovery of orientation and purposeful mvmt of limbs post narcan and romazicon. CT head old rt lacunar infarct, no acute findings. All narcs/sedatives on hold. Aspiration and fall precautions instituted. Liberalized BP for now. Delirium overnight, likely sleep deprived. Consider MRI head only if clinical deterioration. Acute blood loss anemia - Stable. No blood products transfused. DM2 w neuropathy - Poor control by preop A1c of 11.7%. Postop hyperglycemia managed with insulin gtt. IM to assist with transition to basal/prandial/SSI and OHA. Gabapentin on hold pending neuro stability. Plan: Keep Vwires. Insulin per IM. Hold lasix. D5W at 100ml/h x 1L. Coumadin today pending INR result. Keep in ICU for neuro monitoring. 06/10/16 07:43 Subjective: Sitting in a chair. AAO x 3, responding appropriately to name, simple questions and commands. MAEE. Objective: Vital Signs Temp Pulse Resp BP Pulse Ox 37.3 C 57 L 22 H 139/48 H 95 06/10/16 04:00 06/10/16 06:00 06/10/16 06:00 06/10/16 06:00 06/10/16 06:00 Laboratory Results 06/09/16 03:27 06/10/16 05:00 06/09/16 06/10/16 06/11/16 05:59 05:59 05:59 Intake Total 0 620 Output Total 550 430 Balance -550 190 PT 24.1 SEC (12.0-15.0) H 06/09/16 03:27 INR 2.14 (0.83-1.16) H 06/09/16 03:27 Agitated overnoc, restraints required. Calm and lucid this am. Passed swallow, but poor po intake. Holding SB/SR with SBPs 110-140s. Stable suppl O2 req. CXR-> mild pulm vasc congestion, small left pl eff. WBC decr, Na sl elev, LFTs ok. Await INR Physical Exam - Physical Exam General Appearance: no apparent distress, other (Responds to irish) Respiratory: lungs clear (grossly) Cardiac/Chest: regular rate, rhythm, other (Sternotomy CDI) Abdomen: non-tender, soft Skin: warm/dry Extremities: other (no visible edema) ICD10 Worksheet Patient Problems: Problems Problem Status Onset Diabetes mellitus out of control Acute Acute blood loss anemia Acute S/P mitral valve replacement with bioprosthetic valve Acute ~06/06/16 Severe mitral regurgitation Acute
[2016-06-10] MEDS ORDERED: D5W 1,000 ML IV SCH (08:30)
[2016-06-10 08:46] LABS: HEMATOCRIT 29.7 % (40.0-51.0); HEMOGLOBIN 9.1 g/dL (13.7-17.5); MEAN CELL HEMOGLOBIN 28.1 pg (27.9-34.1); MEAN CELL HEMOGLOBIN CONCENTR. 30.6 g/dL (32.4-36.7); MEAN CELL VOLUME 91.7 fL (81.5-99.8); RED BLOOD CELL COUNT 3.24 10^6/uL (4.40-6.38); RED CELL DISTRIBUTION WIDTH 14.3 % (11.5-15.2)
[2016-06-10] MEDS: INSULIN LISPRO 100 UNIT/ML SC SCH ×4 (09:27→17:41)
[2016-06-10] MEDS: ATORVASTATIN CALCIUM 20 MG TAB PO SCH (09:30)
[2016-06-10] MEDS: ASPIRIN 81 MG CHEWABLE TAB PO SCH (09:30)
[2016-06-10] MEDS: SENNOSIDES/DOCUSATE SODIUM TAB PO SCH ×2 (09:30→20:52)
[2016-06-10] MEDS: PANTOPRAZOLE SODIUM 40 MG TAB PO SCH (09:30)
[2016-06-10 11:13] LABS: INR 2.48 (0.83-1.16); PROTIME(PATIENT) 27.1 SEC (12.0-15.0)
--- NOTE | 2016-06-10 14:00 | HOSPPROG ---
Hospitalist Progress Note Assessment/Plan: 75 y/o male pod #2 mitral valve replacement and PFO closure with # uncontrolled DM (A1c 11.7) - blood sugars are high - restart Lantus and lispro * encephalopathy with waxing waning left sided weakness * CT head negative for acute changes * better - possibly related to medication * status post mitral valve replacement * hypernatremia * getting a liter of D5W Subjective: seems better today. Answering questions Objective: Vital Signs Temp Pulse Resp BP Pulse Ox 37.3 C 63 14 139/49 H 95 06/10/16 04:00 06/10/16 10:00 06/10/16 10:00 06/10/16 10:00 06/10/16 10:00 Laboratory Results 06/10/16 08:30 06/10/16 05:00 06/09/16 06/10/16 06/11/16 05:59 05:59 05:59 Intake Total 0 620 Output Total 550 430 Balance -550 190 PT 27.1 SEC (12.0-15.0) H 06/10/16 11:00 INR 2.48 (0.83-1.16) H 06/10/16 11:00 - Physical Exam Constitutional: no apparent distress, appears nourished, not in pain Eyes: anicteric sclera, EOMI Ears, Nose, Mouth, Throat: moist mucous membranes Cardiovascular: regular rate and rhythym, no murmur, rub, or gallop Respiratory: no respiratory distress, no rales or rhonchi, clear to auscultation Neurologic: other ( slight left decreased shine worker strength, answering questions appropriately) ICD10 Worksheet Patient Problems: Problems Problem Status Onset Diabetes mellitus out of control Acute Acute blood loss anemia Acute S/P mitral valve replacement with bioprosthetic valve Acute ~06/06/16 Severe mitral regurgitation Acute
--- NOTE | 2016-06-10 14:59 | PDINTPN ---
Labor Economics Professor Progress Note Assessment/Plan: Assessment/plan: 75 M s/p MV redo with TV annuloplasty complicated by mental status changes, likely related to over-sedation. * Altered mental status with ?focal left sided weakness versus confusion or cooperation. 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 I suspect a strong component of cooperation lack * dm- controlled on lantus 35 units daily plus SSI * nasreen?- may need outpatient sleep study. Will clarify * htn- controlled * s/p MVR- clinically stable. No TR on repeat echo * 06/10/16 14:55 Subjective: No complaints, but minimally cooperative Objective: Vital Signs Temp Pulse Resp BP Pulse Ox 37.6 C 66 22 H 127/38 H 95 06/10/16 14:00 06/10/16 14:00 06/10/16 14:00 06/10/16 14:00 06/10/16 14:00 Laboratory Results 06/10/16 08:30 06/10/16 05:00 06/09/16 06/10/16 06/11/16 05:59 05:59 05:59 Intake Total 0 620 Output Total 550 430 Balance -550 190 PT 27.1 SEC (12.0-15.0) H 06/10/16 11:00 INR 2.48 (0.83-1.16) H 06/10/16 11:00 Physical Exam - Physical Exam General Appearance: alert, no apparent distress EENT: PERRL/EOMI Neck: full range of motion, supple Respiratory: lungs clear, normal breath sounds, No respiratory distress Cardiac/Chest: normal peripheral pulses, regular rate, rhythm, No edema Abdomen: non-tender, soft Skin: normal color, warm/dry, No rash Lymphatic: no adenopathy Extremities: normal range of motion, non-tender, No pedal edema Neuro/Psych: no motor/sensory deficits, alert ICD10 Worksheet Patient Problems: Problems Problem Status Onset Diabetes mellitus out of control Acute Acute blood loss anemia Acute S/P mitral valve replacement with bioprosthetic valve Acute ~06/06/16 Severe mitral regurgitation Acute
[2016-06-10] MEDS ORDERED: WARFARIN SODIUM 1 MG TAB PO ONE (16:57)
[2016-06-10] MEDS: ACETAMINOPHEN 325 MG TAB PO PRN (20:52)
[2016-06-10] MEDS: INSULIN GLARGINE 100 UNITS/ML SYRINGE SC SCH (21:46)
[2016-06-11] MEDS: ACETAMINOPHEN 325 MG TAB PO PRN (02:33)
[2016-06-11] MEDS: traMADol 50 MG TAB PO PRN (03:26)
[2016-06-11 04:59] LABS: ANION GAP 8 mEq/L (8-16); CALCIUM 8.1 mg/dL (8.5-10.4); CARBON DIOXIDE 26 mEq/l (22-31); CHLORIDE 110 mEq/L (97-110); CREATININE 0.7 mg/dL (0.7-1.3); GLOMERULAR FILTRATION RATE > 60; GLUCOSE 200 mg/dL (70-100); POTASSIUM 3.8 mEq/L (3.5-5.2); SODIUM 144 mEq/L (134-144)
[2016-06-11 05:15] LABS: INR 2.21 (0.83-1.16); PROTIME(PATIENT) 24.7 SEC (12.0-15.0)
--- NOTE | 2016-06-11 07:35 | SOAPPROG ---
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 Mitral repair abandoned and tissue valve implanted. Patch repair required to reconstruct LA and septum. Hemodynamically stable early postop course. No prolonged vasoactive support or backup pacing. Postop JR and AVB expected as sinus node artery sacrificed during exposure. BB avoided. No significant volume overload. Antithrombotic prophylaxis x 3 mo with coumadin. Target INR 2-3. Postoperative CVA - Transferred back to the ICU POD#2 for altered mental status with left sided neglect. CT head old rt lacunar infarct, no acute findings. Orientation and purposeful mvmt of limbs recovered after reversal of sedation ( narcan + romazicon) but noted to have lingering LUE weakness and small stroke likely. Narcs/sedatives remain on hold. Aspiration and fall precautions instituted. Liberalized BP for now. Post hospital stay at inpt rehab anticipated. Acute blood loss anemia - Stable. No blood products transfused. DM2 w neuropathy - Poor control by preop A1c of 11.7%. Postop hyperglycemia managed with insulin gtt. IM to assist with transition to basal/prandial/SSI and OHA. Plan: Keep Vwires. Insulin per IM. Resume gabapentin. Coumadin 2 mg today. Increase activity as tolerated. Tx to PCU. 06/11/16 07:35 Subjective: OOB and talkative. Improved sleep last night. Appetite returning. Only c/o is midline incisional discomfort. Objective: Vital Signs Temp Pulse Resp BP Pulse Ox 37.3 C 66 10 L 109/50 L 97 06/11/16 04:00 06/11/16 06:00 06/11/16 06:00 06/11/16 06:00 06/11/16 06:00 Laboratory Results 06/10/16 08:30 06/11/16 04:35 06/10/16 06/11/16 06/12/16 05:59 05:59 05:59 Intake Total 620 1550 Output Total 430 1000 Balance 190 550 PT 24.7 SEC (12.0-15.0) H 06/11/16 04:35 INR 2.21 (0.83-1.16) H 06/11/16 04:35 Per son Tim, almost back to his usual self personality-natarajan. Left arm use also noted to be increasing. Intermittent AJR upper 50s. Adequate fluid balance with normalized Na and stable renal fx. INR therapeutic. Physical Exam - Physical Exam General Appearance: alert (when engaged), no apparent distress Respiratory: rhonchi (diffuse) Cardiac/Chest: regular rate, rhythm, other (Sternum grossly stable. Sternotomy and CT sites CDI) Abdomen: normal bowel sounds, non-tender, soft Skin: warm/dry Extremities: other (no visible edema) Neuro/Psych: other (Able to raise left arm and flex at elbow/wrist, spread fingers, make a fist) ICD10 Worksheet Patient Problems: Problems Problem Status Onset Diabetes mellitus out of control Acute Postoperative stroke Acute Acute blood loss anemia Acute S/P mitral valve replacement with bioprosthetic valve Acute ~06/06/16 Severe mitral regurgitation Acute
[2016-06-11] MEDS: SENNOSIDES/DOCUSATE SODIUM TAB PO SCH ×2 (08:29→20:48)
[2016-06-11] MEDS: ATORVASTATIN CALCIUM 20 MG TAB PO SCH (08:29)
[2016-06-11] MEDS: PANTOPRAZOLE SODIUM 40 MG TAB PO SCH (08:29)
[2016-06-11] MEDS: ASPIRIN 81 MG CHEWABLE TAB PO SCH (08:29)
[2016-06-11] MEDS: INSULIN LISPRO 100 UNIT/ML SC SCH ×6 (08:30→18:10)
[2016-06-11] MEDS: IBUPROFEN 600 MG TAB PO SCH ×3 (12:15→20:48)
--- NOTE | 2016-06-11 12:45 | PDINTPN ---
Channel Process Supervisor Progress Note Assessment/Plan: Assessment/plan: 75 M s/p MV redo with TV annuloplasty complicated by mental status changes, likely related to over-sedation. * Altered mental status with ?focal left sided weakness versus confusion or cooperation. 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 Much improved today with no major deficits * dm- controlled on lantus 35 units daily plus SSI * NASIR- known diagnosis per family but refuses outpatient CPAP. Use O2 qhs for now. * htn- controlled * s/p MVR- clinically stable. No TR on repeat echo * Agree with PCU status 06/10/16 14:55 06/11/16 12:43 Subjective: improving mental status- feels well and denies sob, cp. Asking when he can go home. Objective: Vital Signs Temp Pulse Resp BP Pulse Ox 36.9 C 68 19 103/58 L 99 06/11/16 11:57 06/11/16 11:57 06/11/16 11:57 06/11/16 11:57 06/11/16 11:57 Laboratory Results 06/10/16 08:30 06/11/16 04:35 06/10/16 06/11/16 06/12/16 05:59 05:59 05:59 Intake Total 620 1550 Output Total 430 1000 Balance 190 550 PT 24.7 SEC (12.0-15.0) H 06/11/16 04:35 INR 2.21 (0.83-1.16) H 06/11/16 04:35 Physical Exam - Physical Exam General Appearance: alert, no apparent distress EENT: PERRL/EOMI Neck: full range of motion, supple Respiratory: lungs clear, normal breath sounds, No respiratory distress Cardiac/Chest: normal peripheral pulses, regular rate, rhythm, No edema Abdomen: normal bowel sounds, non-tender, soft Skin: normal color, warm/dry, No rash Lymphatic: no adenopathy Extremities: normal capillary refill, No pedal edema Neuro/Psych: alert, normal mood/affect, oriented x 3 ICD10 Worksheet Patient Problems: Problems Problem Status Onset Diabetes mellitus out of control Acute Postoperative stroke Acute Acute blood loss anemia Acute S/P mitral valve replacement with bioprosthetic valve Acute ~06/06/16 Severe mitral regurgitation Acute
[2016-06-11] MEDS ORDERED: WARFARIN SODIUM 2 MG TAB PO ONE (16:00)
--- NOTE | 2016-06-11 16:04 | HOSPPROG ---
Hospitalist Progress Note Assessment/Plan: 75 y/o male s/p mitral valve replacement and PFO closure with # uncontrolled DM (A1c 11.7) - blood sugars are high - add a.m. Lantus to sliding scale and mealtime insulin * encephalopathy with waxing waning left sided weakness * probably postoperative CVA * status post mitral valve replacement * hypernatremia * resolved Subjective: no new complaints. Does have continued left arm weakness Objective: Vital Signs Temp Pulse Resp BP Pulse Ox 36.6 C 56 L 20 90/54 L 96 06/11/16 15:12 06/11/16 15:12 06/11/16 15:12 06/11/16 15:12 06/11/16 15:12 Laboratory Results 06/10/16 08:30 06/11/16 04:35 06/10/16 06/11/16 06/12/16 05:59 05:59 05:59 Intake Total 620 1550 Output Total 430 1000 Balance 190 550 PT 24.7 SEC (12.0-15.0) H 06/11/16 04:35 INR 2.21 (0.83-1.16) H 06/11/16 04:35 - Physical Exam Constitutional: no apparent distress, appears nourished, not in pain Eyes: anicteric sclera, EOMI Ears, Nose, Mouth, Throat: moist mucous membranes, hearing normal Cardiovascular: regular rate and rhythym, no murmur, rub, or gallop Respiratory: no respiratory distress, no rales or rhonchi, clear to auscultation Gastrointestinal: normoactive bowel sounds, soft, non-tender abdomen, no palpable masses Skin: warm Neurologic: other ( left arm weakness and slight facial droop) Psychiatric: interacting appropriately, not anxious, not encephalopathic, thought process linear ICD10 Worksheet Patient Problems: Problems Problem Status Onset Diabetes mellitus out of control Acute Postoperative stroke Acute Acute blood loss anemia Acute S/P mitral valve replacement with bioprosthetic valve Acute ~06/06/16 Severe mitral regurgitation Acute
[2016-06-11] MEDS: INSULIN GLARGINE 100 UNITS/ML SYRINGE SC SCH (20:48)
[2016-06-11] MEDS: GABAPENTIN 300 MG CAP PO SCH (20:48)
[2016-06-12] MEDS: traMADol 50 MG TAB PO PRN (03:48)
[2016-06-12 05:18] LABS: INR 2.25 (0.83-1.16); PROTIME(PATIENT) 25.1 SEC (12.0-15.0)
[2016-06-12] MEDS: IBUPROFEN 600 MG TAB PO SCH ×4 (06:33→21:02)
[2016-06-12] MEDS ORDERED: FUROSEMIDE 20 MG/2 ML VIAL IVP ONE (07:08)
[2016-06-12] MEDS ORDERED: POTASSIUM CL 10 MEQ TAB PO ONE (07:08)
[2016-06-12] MEDS ORDERED: ACETAMINOPHEN 325 MG TAB PO SCH (08:00)
[2016-06-12] MEDS: INSULIN LISPRO 100 UNIT/ML SC SCH ×6 (08:12→18:41)
[2016-06-12] MEDS: ATORVASTATIN CALCIUM 20 MG TAB PO SCH (08:14)
[2016-06-12] MEDS: ASPIRIN 81 MG CHEWABLE TAB PO SCH (08:15)
[2016-06-12] MEDS: SENNOSIDES/DOCUSATE SODIUM TAB PO SCH ×2 (08:15→21:01)
[2016-06-12] MEDS: INSULIN GLARGINE 100 UNITS/ML SYRINGE SC SCH ×2 (08:16→21:09)
[2016-06-12] MEDS: PANTOPRAZOLE SODIUM 40 MG TAB PO SCH (08:37)
--- NOTE | 2016-06-12 08:39 | SOAPPROG ---
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 Mitral repair abandoned and tissue valve implanted. Patch repair required to reconstruct LA and septum. Hemodynamically stable early postop course. No prolonged vasoactive support or backup pacing. Postop JR and AVB expected as sinus node artery sacrificed during exposure. BB avoided. No significant volume overload. Antithrombotic prophylaxis x 3 mo with coumadin. Target INR 2-3. Therapeutic since 06/09. Postoperative CVA - Transferred back to the ICU POD#2 for altered mental status with left sided neglect. CT head old rt lacunar infarct, no acute findings. Orientation and purposeful mvmt of limbs recovered after reversal of sedation ( narcan + romazicon) but noted to have lingering LUE weakness and small stroke likely. Narcs/sedatives remain on hold. Aspiration and fall precautions instituted. Dysphagia diet w advancement per RECORDS MANAGER. Liberalized BP for now. Post hospital stay at inpt rehab arranged. Acute blood loss anemia - Stable. No blood products transfused. DM2 w neuropathy - Poor control by preop A1c of 11.7%. Postop hyperglycemia managed with insulin gtt. IM to assist with transition to basal/prandial/SSI and OHA. Plan: Clip Vwires later today if ok w Dr Brown. Insulin per IM. Begin daily diuresis. Coumadin 2 mg today. Scheduled tylenol and ibuprofen during waking hours. Cont increased activity as tolerated. Retest swallow. Dispo - [facility] rehab, tomorrow feasible. 06/12/16 08:37 Subjective: "Better every day". Adequate analgesia. Thirsty. Craving "real" food. Await BM. Objective: Vital Signs Temp Pulse Resp BP Pulse Ox 36.4 C 63 20 113/57 L 96 06/12/16 04:00 06/12/16 04:00 06/12/16 04:00 06/12/16 04:00 06/12/16 04:00 Laboratory Results 06/10/16 08:30 06/12/16 03:48 06/11/16 06/12/16 06/13/16 05:59 05:59 05:59 Intake Total 1550 1640 Output Total 1000 100 Balance 550 1640 -100 PT 25.1 SEC (12.0-15.0) H 06/12/16 03:48 INR 2.25 (0.83-1.16) H 06/12/16 03:48 Improving LUE use, tho still a little spastic/uncoordinated. Rare SB, generally SR 60s w 1st degree AVB. CXR-> bibasilar atelectasis w small rt pl eff INR stable Physical Exam - Physical Exam General Appearance: alert, no apparent distress Respiratory: crackles (bases, o/w CTA) Cardiac/Chest: regular rate, rhythm, other (Sternum grossly stable. Sternotomy CDI. Vwire intact.) Abdomen: non-tender, soft Skin: warm/dry Extremities: swelling (1+ dependent) ICD10 Worksheet Patient Problems: Problems Problem Status Onset Diabetes mellitus out of control Acute Postoperative stroke Acute Acute blood loss anemia Acute S/P mitral valve replacement with bioprosthetic valve Acute ~06/06/16 Severe mitral regurgitation Acute
[2016-06-12] MEDS: metFORMIN HCL 500 MG TAB PO SCH ×2 (12:09→18:43)
[2016-06-12] MEDS: ACETAMINOPHEN 325 MG TAB PO SCH ×2 (13:00→18:43)
--- NOTE | 2016-06-12 14:16 | HOSPPROG ---
Hospitalist Progress Note Assessment/Plan: 75 y/o male s/p mitral valve replacement and PFO closure with # uncontrolled DM (A1c 11.7) - blood sugars are high - added extra Lantus in the morning yesterday * will add back metformin today * encephalopathy with waxing waning left sided weakness * probably postoperative CVA * status post mitral valve replacement * hypernatremia * resolved Subjective: no new complaints. Seems about the same Objective: Vital Signs Temp Pulse Resp BP Pulse Ox 36.5 C 62 16 90/62 L 94 06/12/16 12:00 06/12/16 12:00 06/12/16 12:00 06/12/16 12:00 06/12/16 12:00 Laboratory Results 06/10/16 08:30 06/12/16 03:48 06/11/16 06/12/16 06/13/16 05:59 05:59 05:59 Intake Total 1550 1640 Output Total 1000 100 Balance 550 1640 -100 PT 25.1 SEC (12.0-15.0) H 06/12/16 03:48 INR 2.25 (0.83-1.16) H 06/12/16 03:48 - Physical Exam Constitutional: no apparent distress, appears nourished, not in pain Eyes: anicteric sclera, EOMI Ears, Nose, Mouth, Throat: moist mucous membranes Respiratory: no respiratory distress Psychiatric: interacting appropriately, not anxious, not encephalopathic, thought process linear ICD10 Worksheet Patient Problems: Problems Problem Status Onset Diabetes mellitus out of control Acute Postoperative stroke Acute Acute blood loss anemia Acute S/P mitral valve replacement with bioprosthetic valve Acute ~06/06/16 Severe mitral regurgitation Acute
[2016-06-12] MEDS ORDERED: WARFARIN SODIUM 2 MG TAB PO ONE (16:00)
[2016-06-12] MEDS: GABAPENTIN 300 MG CAP PO SCH (21:02)
[2016-06-13 04:39] VITALS: O2SAT 95
[2016-06-13 05:32] LABS: HEMATOCRIT 31.7 % (40.0-51.0); HEMOGLOBIN 9.8 g/dL (13.7-17.5); MEAN CELL HEMOGLOBIN 28.2 pg (27.9-34.1); MEAN CELL HEMOGLOBIN CONCENTR. 30.9 g/dL (32.4-36.7); MEAN CELL VOLUME 91.4 fL (81.5-99.8); RED BLOOD CELL COUNT 3.47 10^6/uL (4.40-6.38); RED CELL DISTRIBUTION WIDTH 13.6 % (11.5-15.2)
[2016-06-13 05:47] LABS: INR 2.03 (0.83-1.16); PROTIME(PATIENT) 23.1 SEC (12.0-15.0)
[2016-06-13 05:57] LABS: ANION GAP 9 mEq/L (8-16); CALCIUM 8.6 mg/dL (8.5-10.4); CARBON DIOXIDE 28 mEq/l (22-31); CHLORIDE 105 mEq/L (97-110); CREATININE 0.8 mg/dL (0.7-1.3); GLOMERULAR FILTRATION RATE > 60; GLUCOSE 91 mg/dL (70-100); POTASSIUM 4.1 mEq/L (3.5-5.2); SODIUM 142 mEq/L (134-144)
[2016-06-13] MEDS: IBUPROFEN 600 MG TAB PO SCH ×2 (06:24→11:27)
[2016-06-13] MEDS: ACETAMINOPHEN 325 MG TAB PO SCH ×3 (06:26→11:26)
--- NOTE | 2016-06-13 07:58 | SOAPPROG ---
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 Mitral repair abandoned and tissue valve implanted. Patch repair required to reconstruct LA and septum. Hemodynamically stable early postop course. No prolonged vasoactive support or backup pacing. Postop JR and AVB expected as sinus node artery sacrificed during exposure. BB avoided. No significant volume overload. Antithrombotic prophylaxis x 3 mo with coumadin. Target INR 2-3. Therapeutic since 06/09. Postoperative CVA - Transferred back to the ICU POD#2 for altered mental status with left sided neglect. CT head old rt lacunar infarct, no acute findings. Orientation and purposeful mvmt of limbs recovered after reversal of sedation ( narcan + romazicon) but noted to have lingering LUE weakness and small stroke likely. Narcs/sedatives remain on hold. Aspiration and fall precautions instituted. Dysphagia diet w advancement per EMERGENCY DEPARTMENT MANAGER. Liberalized BP for now. Post hospital stay at inpt rehab arranged. Acute blood loss anemia - Stable. No blood products transfused. DM2 w neuropathy - Poor control by preop A1c of 11.7%. Postop hyperglycemia managed with insulin gtt. IM to assist with transition to basal/prandial/SSI and OHA. 06/13/16 10:28 Subjective: Feels well. Working on LUE strength. Objective: Vital Signs Temp Pulse Resp BP Pulse Ox 36.8 C 60 16 105/48 L 95 06/13/16 04:00 06/13/16 04:00 06/13/16 04:00 06/13/16 04:00 06/13/16 04:00 Laboratory Results 06/13/16 04:10 06/13/16 04:10 06/12/16 06/13/16 06/14/16 05:59 05:59 05:59 Intake Total 1640 1560 Output Total 975 Balance 1640 585 PT 23.1 SEC (12.0-15.0) H 06/13/16 04:10 INR 2.03 (0.83-1.16) H 06/13/16 04:10 Physical Exam - Physical Exam General Appearance: WD/WN, alert, no apparent distress EENT: No scleral icterus (R), No scleral icterus (L) Neck: normal inspection Respiratory: No respiratory distress Cardiac/Chest: bradycardia Abdomen: non-tender, soft, distended Skin: normal color, warm/dry Extremities: pedal edema (+1 B/L LE) Neuro/Psych: alert, normal mood/affect, oriented x 3, motor weakness (LUE) ICD10 Worksheet Patient Problems: Problems Problem Status Onset Diabetes mellitus out of control Acute Postoperative stroke Acute Acute blood loss anemia Acute S/P mitral valve replacement with bioprosthetic valve Acute ~06/06/16 Severe mitral regurgitation Acute
[2016-06-13 08:26] VITALS: BP 113/53; PULSE 55; RESP 18; TEMP 97.8
[2016-06-13] MEDS: INSULIN LISPRO 100 UNIT/ML SC SCH ×2 (08:45→08:46)
[2016-06-13] MEDS: SENNOSIDES/DOCUSATE SODIUM TAB PO SCH (08:45)
[2016-06-13] MEDS: ATORVASTATIN CALCIUM 20 MG TAB PO SCH (08:45)
[2016-06-13] MEDS: PANTOPRAZOLE SODIUM 40 MG TAB PO SCH (08:45)
[2016-06-13] MEDS: metFORMIN HCL 500 MG TAB PO SCH (08:45)
[2016-06-13] MEDS: ASPIRIN 81 MG CHEWABLE TAB PO SCH (08:45)
[2016-06-13] MEDS: INSULIN GLARGINE 100 UNITS/ML SYRINGE SC SCH (08:54)
[2016-06-13] MEDS ORDERED: FUROSEMIDE 40 MG TAB PO SCH (09:00)
[2016-06-13] MEDS ORDERED: POTASSIUM CL 10 MEQ TAB PO SCH (09:00)
--- NOTE | 2016-06-13 11:02 | PDIAF ---
- Diagnosis Diagnosis: s/p MV replacement, post-op CVA with LUE weakness Code Status: Full Code - Medication Management Discharge Medications: Medications to Continue on Transfer metFORMIN HCL [Glucophage 500 mg (*)] 500 mg PO BIDMEAL 04/17/16 [Last Taken 12:00] Gabapentin [Neurontin 300 MG (*)] 300 mg PO HS 06/05/16 [Last Taken 06/05/16] Acetaminophen [Tylenol 325mg (*)] 650 mg PO Q6 #0 tab 06/13/16 [Last Taken Unknown] Aspirin [Aspirin 81mg (*)] 81 mg PO DAILY #0 tab.chew 06/13/16 [Last Taken Unknown] Atorvastatin Calcium [Lipitor 40 mg (*)] 40 mg PO DAILY #0 tab 06/13/16 [Last Taken Unknown] Benzocaine/Menthol 02/08 [Cepacol Lozenge] 1 ea PO Q2HRS PRN #0 lozenge 06/13/16 [Last Taken Unknown] Dextrose 50% Syringe 25 gm IVP PRN PRN #0 syr 06/13/16 [Last Taken Unknown] Furosemide [Lasix 40 MG (*)] 40 mg PO DAILY #0 tab 06/13/16 [Last Taken Unknown] Gabapentin [Neurontin 300 MG (*)] 300 mg PO HS #0 cap 06/13/16 [Last Taken Unknown] Ibuprofen [Motrin (*)] 600 mg PO QID #0 tab 06/13/16 [Last Taken Unknown] Insulin Glargine [Lantus 100 UNITS/ML (*)] 10 units SC DAILY #0 ml 06/13/16 [ Last Taken Unknown] Insulin Glargine [Lantus 100 UNITS/ML (*)] 35 units SC HS #0 ml 06/13/16 [Last Taken Unknown] Insulin Lispro [humALOG LISPRO 100 units/ml (*)] 0 unit SC TIDMEAL #0 unit 06/13 [Last Taken Unknown] Insulin Lispro [humALOG LISPRO 100 units/ml (*)] 10 unit SC DAILY@0800 #0 unit 06/13/16 [Last Taken Unknown] Insulin Lispro [humALOG LISPRO 100 units/ml (*)] 10 unit SC DAILY@1200 #0 unit 06/13/16 [Last Taken Unknown] Insulin Lispro [humALOG LISPRO 100 units/ml (*)] 10 unit SC DAILY@1800 #0 unit 06/13/16 [Last Taken Unknown] Potassium Cl [Klor-Con 10 meq (RX)] 10 meq PO DAILY #0 tab 06/13/16 [Last Taken Unknown] Warfarin Sodium [Coumadin 2MG (*)] 2 mg PO DAILY AT 4PM #0 tab 06/13/16 [Last Taken Unknown] Discharge Medications: Refer to the Discharge Home Medication list for PRN reason. PICC Care - Routine: N/A - Orders Services needed: Registered Nurse, Certified Guest House Manager, Physical Therapy, Occupational Therapy, Speech Language Pathologist Oxygen: 2L NC Diet Recommendation: cardiac -low fat low salt, fluid restriction (use comment for amount) (2 Liters ) Diet Texture: Dysphagia 3 - Advanced - Moist, Bite-Size, Thin Liquids, Ice Chips , Meds Whole in Puree Weigh Patient: daily Bonner: No Wound Care Instructions: Wash wounds daily with soap and water and leave wounds open to air. No ointments/creams. Activity/Weight Bearing Restrictions: Sternal precautions x 4 weeks. No lifting > 10 pounds. No push/pull activities. Hug heart pillow when coughing/sneezing. Additional: - INR goal is 2-3 for mitral valve replacement. Please check INR and dose accordingly. - Insulin sliding scale is "standard". - Beta-yuliya contraindicated due to bradycardic/junctional rhythm. - Call [facility] if weight gain greater than 2 pounds/day or if legs become swollen. - Call [facility] for wound issues (drainage, erythema, tenderness). - Call [facility] if HR consistently <60 or >100. - Call [facility] if SBP consistently <90 or >140 - Labs/Radiology BMP Date: 06/16/16 PT/INR Date: 06/14/16 (Obtain INR daily INR 2-3) Imaging Orders: 06/16/16: CXR (PA/Lateral) - Follow Up Care Current Providers and Referrals: NONE *PRIMARY CARE P,. [Primary Care Provider] - Conrado Brown DO [Doctor of Osteopathy] - 06/17/16 11:00 am
[2016-06-13] MEDS ORDERED: WARFARIN SODIUM 2 MG TAB PO SCH (16:00)
--- NOTE | 2016-06-13 19:00 | PDDCSUM ---
Discharge Summary Discharge Summary: ADMISSION DATE: 06/06/16 DISCHARGE DATE: 06/13/16 ADMISSION DX: 1. Severe mitral insufficiency 2. Patent foramen ovale 3. Dyspnea on exertion DISCHARGE DX: 1. Severe mitral insufficiency 2. Patent foramen ovale 3. Dyspnea on exertion 4. Disruption of left atrial dome 5. Acute blood loss anemia 6. Postoperative cerebral vascular accident with left-upper extremity weakness SECONDARY DX: 1. Morbid obesity 2. Poorly controlled diabetes mellitus type 2 CONSULTS: 1. Pulmonology/Critical care: Vinicio Patton 2. Internal Medicine (diabetes management) PROCEDURES: 06/06/16, Conrado Brown: 1. Mitral valve replacement, chordal sparing with #27 Magna bioprosthesis 2 Closure of patent foramen ovale 3. Bovine pericardial reconstruction of left atrial dome and interatrial septum HPI: Pt with severe mitral insufficiency and worsening dyspnea on exertion electively admitted for open heart surgery. HOSPITAL COURSE: The patient underwent the procedures above and was transferred to the ICU in stable condition. On POD #2 the patient was somnolent and experienced weakness which was more pronounced on his left side. The symptoms worsened after taking both opioids and benzodiazepines. He was transferred to the ICU for close monitoring as it was thought that he may have had an acute stroke. He was given both narcan and flumazenil and his symptoms improved but he still had left- upper extremity weakness. A CT of the head was performed which did not show an acute CVA. His left-upper extremity weakness persisted throughout his hospital stay and it was concluded that he had suffered from a stroke. He was transferred to [facility] for acute rehab. CONDITION Good DISPOSITION: [facility] for Rehabilitation ACTIVITY: Pt was instructed on sternal precautions, activity limitations, and which problems to call [facility] with. Please see Discharge Plan in chart for specifics. D/C MEDICATIONS: 1. metFORMIN HCL [Glucophage 500 mg (*)] 500 mg PO BIDMEAL 2. Gabapentin [Neurontin 300 MG (*)] 300 mg PO HS 3. Acetaminophen [Tylenol 325mg (*)] 650 mg PO Q6 4. Aspirin [Aspirin 81mg (*)] 81 mg PO DAILY 5. Atorvastatin Calcium [Lipitor 40 mg (*)] 40 mg PO DAILY 6. Benzocaine/Menthol 15/4 [Cepacol Lozenge] 1 ea PO Q2HRS PRN 7. Dextrose 50% Syringe 25 gm IVP PRN 8. Furosemide [Lasix 40 MG (*)] 40 mg PO DAILY 9. Ibuprofen [Motrin (*)] 600 mg PO QID 10. Insulin Glargine [Lantus 100 UNITS/ML (*)] 10 units SC DAILY 11. Insulin Glargine [Lantus 100 UNITS/ML (*)] 35 units SC HS 12. Insulin Lispro [humALOG LISPRO 100 units/ml (*)] 0 unit SC TIDMEAL 13. Insulin Lispro [humALOG LISPRO 100 units/ml (*)] 10 unit SC DAILY@0800 14. Insulin Lispro [humALOG LISPRO 100 units/ml (*)] 10 unit SC DAILY@1200 15. Insulin Lispro [humALOG LISPRO 100 units/ml (*)] 10 unit SC DAILY@1800 16. Potassium Cl [Klor-Con 10 meq (RX)] 10 meq PO DAILY 17. Warfarin Sodium [Coumadin 2MG (*)] 2 mg PO DAILY AT 4PM (INR goal 2-3 x 3 months) PENDING STUDIES/LABS: 1. CXR 06/16/16 2. BMP/INR 06/16/16 F/U APPOINTMENTS: 1. Dr. Conrado Brown - 06/17/16, 11:00 AM
== END 2016-06-13 11:53 | DRG 219 ==
LOC: F2N 05:19 → F2W 06-07 17:08 → F2N 06-08 22:50 → F2W 06-11 12:37
PROVIDERS: ADMIT Thoracic Surgery (Cardiothoracic Vascular Surgery); ATTEND Thoracic Surgery (Cardiothoracic Vascular Surgery)
PROC: 02U Heart and Great Vessels, Supplement (ICD-10-PCS; principal; 2016-06-06 07:15)
PROC: 5A1221Z Performance of Cardiac Output, Continuous (ICD-10-PCS; principal; 2016-06-06 07:15)
PROC: 02RG08Z Replacement of Mitral Valve with Zooplastic Tissue, Open Approach (ICD-10-PCS; principal; 2016-06-06 07:15)
PROC: 02U508Z Supplement Atrial Septum with Zooplastic Tissue, Open Approach (ICD-10-PCS; principal; 2016-06-06 07:15)
DX: I34.0 Nonrheumatic mitral (valve) insufficiency (principal); I51.1 Rupture of chordae tendineae, not elsewhere classified; I51.89 Other ill-defined heart diseases; Q21.1 Atrial septal defect; D62 Acute posthemorrhagic anemia; I97.820 Postprocedural cerebrovascular infarction following cardiac surgery; G81.94 Hemiplegia, unspecified affecting left nondominant side; E11.9 Type 2 diabetes mellitus without complications; I10 Essential (primary) hypertension; J44.9 Chronic obstructive pulmonary disease, unspecified; E78.5 Hyperlipidemia, unspecified; E66.01 Morbid (severe) obesity due to excess calories; Z68.32 Body mass index [BMI] 32.0-32.9, adult; Z85.46 Personal history of malignant neoplasm of prostate
CPT/HCPCS: 82947-QW; 92526-GN; 92610-GN; 97116-GP; 97161-GP; 97165-GO; 97530-GO; 97530-GP; 97535-GO; G8978-GP-CM; G8979-GP-CJ; G8979-GP-CM; G8980-GP-CJ; G8987-GO-CM; G8988-GO-CJ; G8996-GN-CI; G8997-GN-CH; J0153; J0282; J0690; J1265; J1644; J1815; J1885; J2001; J2150; J2250; J2260; J2370; J2704; J2720; J2930; J3010; J7060; P9041; Q4116

== ENCOUNTER 2016-06-13 11:12 | Inpatient (IN) | payer OTHER, MEDICAID ==
[2016-06-13] MEDS ORDERED: BISACODYL 10 MG SUPP PR PRN (12:02)
[2016-06-13] MEDS ORDERED: D50W 25 GM/50 ML SYR IVP PRN (13:36)
[2016-06-13] MEDS ORDERED: CEPACOL LOZENGE PO PRN (13:36)
--- NOTE | 2016-06-13 14:15 | GHP ---
POST ADMISSION PHYSICIAN EVALUATION AND REHABILITATION TREATMENT PLAN DATE OF ADMISSION: 06/13/2016 DATE OF EVALUATION: June 13, 2016. TIME OF EVALUATION: 1345. REFERRING FACILITY: [facility]. REFERRING PHYSICIAN: Conrado Brown DO IMPAIRMENT GROUP: 0.9. DATE OF ONSET: 06/06/2016. ADDITIONAL REFERRING PHYSICIAN: Dr. Zimmerman with hospitalist service. REHABILITATION DIAGNOSIS: Debility status post mitral valve replacement and postoperative cerebrovascular accident. ETIOLOGIC DIAGNOSIS: Cardiac. DATE OF SURGERY: 06/06/2016. HISTORY OF PRESENT ILLNESS: The patient was admitted to [facility] on 06/06/2016 for an elective mitral valve replacement due to severe mitral valve insufficiency. It was determined intraoperatively that mitral valve repair was not possible, so he received a bovine tissue valve. Additionally he required reconstruction of the dome of the left atrium and the interatrial septum, and he had closure of a patent foramen ovale. Postoperatively he had acute left-sided weakness. 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 He was also noted to be oversedated and opiates and benzodiazepines were pharmacologically reversed, and he had improvement in his left upper extremity function. There was hyponatremia, which resolved. He was noted to have encephalopathy as well. He had high blood sugars and had titration of insulin, as well as being treated with metformin. Studies and labs in the hospital otherwise, on the day of discharge: renal function and electrolytes were completely within normal limits. INR was at 2.03. Hematology revealed anemia with hemoglobin of 9.8 and hematocrit of 31.7. Three days previously hemoglobin had been 9.1 and 29.7. Platelet count and white blood cell count were normal. A chest x-ray on 06/12/2016 showed dependent edema in lung bases and suspected effusion as well, but he had improvement i central pulmonary edema compared to the prior study of 06/10/2016. PRECAUTIONS: He is a fall risk. He has cardiac precautions. ACTIVE COMORBIDITIES: He has a tier 3 comorbidity of morbid obesity, as well as diabetes mellitus with manifestations. PAST MEDICAL HISTORY: 1. Diabetes mellitus type 2. 2. Dyslipidemia. 3. Hypertension. 4. Mitral regurgitation. 5. Left anterior fascicular block. 6. Prostate cancer. 7. Gastroesophageal reflux disorder. PAST SURGICAL HISTORY: He has had a prostatectomy. ALLERGIES: There are no known drug allergies. MEDICATIONS AT HOME: 1. Aspirin. 2. Humalog insulin. 3. Lantus insulin. 4. Atorvastatin. 5. Lisinopril/hydrochlorothiazide. 6. Meclizine. 7. Metformin. 8. Amlodipine. 9. Pantoprazole. 10. Ranitidine. 11. Tramadol. 12. Vicodin. ADMISSION MEDICATIONS: 1. Warfarin 2 mg p.o. daily. 2. Furosemide 40 mg p.o. daily. 3. Cepacol lozenges q.2 hours p.r.n. 4. Atorvastatin 40 mg p.o. daily. 5. Aspirin 81 mg p.o. daily. 6. Acetaminophen 650 mg p.o. q.6 hours. 7. Metformin 500 mg p.o. twice daily. 8. Gabapentin 300 mg p.o. at bedtime. 9. Insulin glargine 10 units subcutaneous daily, and 35 units subcutaneous at bedtime. 10. Insulin lispro 10 units subcutaneously three times daily before meals. 11. Insulin lispro on a sliding scale, three times daily with meals. 12. Potassium chloride 10 mEq p.o. daily. 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 He was a smoker in the past, but not for many years. He has no significant alcohol use. He lives with his son, and has close family support. FAMILY HISTORY: Noncontributory. REVIEW OF SYSTEMS: He complains of fatigue, poor sleep, incisional chest pain, and memory loss. He denies cough or dyspnea. He denies palpitations. He denies fevers or chills. He denies vision changes, headache, weakness, numbness or tingling of the extremities. He has some left hip pain. He denies skin rash or skin breakdown. He denies joint pain or joint swelling, otherwise a 10-point review of systems is negative. PHYSICAL EXAM: VITALS: This morning at [facility], blood pressure was 115/53, heart rate was 55, respiratory rate was 18, oxygen saturation was 95% on 2 L. Temperature was 36.6 degrees centigrade. His weight was 104.5 kg, for a body mass index of 33.4. GENERAL: This is a well-nourished, well-developed, obese man sitting in a chair, cooperative, and in no acute distress. HEENT: Extraocular movements are intact. Pupils are equal, round, and reactive to light. Mucous membranes are moist. Dentition is in good condition. He has a moderately crowded airway, Mallampati class 2-3. NECK: Supple. HEART: There is a regular rate and rhythm with no murmurs, rubs, or gallops. LUNGS: Clear to auscultation bilaterally. ABDOMEN: Soft, nontender, nondistended, with normoactive bowel sounds. There is no hepatosplenomegaly. EXTREMITIES: There is no cyanosis or clubbing, there 2+ edema bilaterally to the lower extremities in the pretibial area. Radial and dorsalis pedis pulses are 2+ bilaterally. NEUROLOGIC: He is alert and oriented to the general situation, location, month and year. He is off by a week on the date of the month, thinking that is the 17 when it is actually the 24th. Cranial nerves II-XII are grossly intact. His motor strength is 4/5 at the left hand tobacco educator and left triceps, otherwise 5/5 overall, and he is able to arise with contact guard assist per the nurse from seated, and ambulate across the room using a front-wheeled walker. Sensation is intact to light touch. Deep tendon reflexes are 2+ at the Achilles and patellar tendons, and hypoactive at the biceps. Plantar reflex is indeterminate bilaterally. CURRENT LEVEL OF FUNCTION: Per the preadmission screen, regarding diet, feeding , and swallowing, he was on a dysphagia 3 diet texture with thin liquids, medications in puree. He had a fluid restriction of 2 L per day, and he had supervision or assistance with meals. Regarding grooming, he required contact guard standing at the sink for oral care and hand washing, with cues for walker placement. Regarding toileting, he required minimal assistance to contact guard assistance for self care. He was continent of bladder and bowel. Regarding bed mobility, he required contact guard to minimal assistance with max cues to maintain sternal precautions, especially when head of bed was flat. Regarding transfers, he required standby assist with hand placement to maintain sternal precautions. He used a front-wheeled walker. His balance required contact guard. His endurance was fair, he ambulated 400 feet with standby assist and oxygen, and voice cuing. He was noted to a desaturate to 88 % on room air with ambulation for short distances. IMPRESSION: Mr. Vasquez is a 75-year-old man who had mitral valve regurgitation and had elective surgery. Valve repair was not possible due to technical issues. He had mitral valve replacement with a tissue valve. Additionally, he required reconstruction of the left atrial dome and he had repair of a patent foramen ovale. Hospital course was complicated by a perioperative cerebrovascular accident, which has left him with left upper extremity weakness. He had oversedation on opiates and benzodiazepines, with worsening of his left upper extremity weakness while he was oversedated. Oversedation was reversed with pharmacologic agents, and he had considerable recovery. He has had fluid overload. He has had difficult to control diabetes mellitus with titration of insulin. He is appropriate for inpatient rehabilitation, with needs for recovery of independence regarding mobility and activities of daily living. Additionally he needs cognitive assessment as he has had a stroke and had encephalopathy during his hospitalization. He needs medical care regarding comorbidities, including fluid overload and diabetes mellitus, and he needs attention to pain control by the rehabilitation physician. He will benefit from rehabilitation nursing regarding fall risk, aspiration risk, wound healing, bowel and bladder, and education for the patient and his family. His goal is to return home with support of his daughter. For a safe discharge it is anticipated he will achieve independence with eating on least restrictive diet and with grooming. He will have modified independence for transfers and ambulation on level and unlevel surfaces. He may continue to require assistance for bed mobility, dressing and bathing. He will need to have education and working knowledge of sternal precautions while performing ADLs and functional tasks, and his family will need to be educated as well. He will have therapy with physical therapy, occupational therapy, and speech and language pathology for 60 minutes per day for each discipline on 5 to 7 days per week. His expected duration of stay is 7-10 days. It is anticipated that upon discharge he will continue to benefit from home health services, including nursing, speech language, pathology, a home health aide, occupational therapy and physical therapy. Additionally he may benefit from a stroke support group. ASSESSMENT AND PLAN: 1. Debility, status post mitral valve surgery and postoperative cerebrovascular accident. Physical therapy and occupational therapy to optimize mobility and activities of daily living. 2. Encephalopathy and dysphagia. He will have assessment and treatment per Speech and Language Pathology. 3. Fluid overload, status post hospitalization. Continue furosemide and potassium chloride, daily weight, monitor fluid status, and taper diuretic if possible. 4. Diabetes mellitus type 2. He comes out of the hospital on metformin 500 mg twice daily, I will increase this to 1000 mg twice daily, and we will continue current insulin dosing and adjust it as needed. 5. Anticoagulation, status post mitral valve surgery. He is to remain on warfarin for a total of 3 months. He has been therapeutic on his INR since , so he will continue warfarin through approximately September 01, 2016. 6. Dyslipidemia, continue atorvastatin. 7. Postoperative anemia with improvement during the last few days of his hospitalization. Monitor his blood counts. Followup was scheduled with cardiothoracic surgeon, Dr. Brown, 06/17/2016 at 11: 00 a.m. /[id number]/MODL MTDD
[2016-06-13] MEDS: ACETAMINOPHEN 325 MG TAB PO SCH ×2 (17:50→23:21)
[2016-06-13] MEDS: IBUPROFEN 600 MG TAB PO SCH ×3 (17:51→20:53)
[2016-06-13] MEDS: INSULIN LISPRO 100 UNIT/ML SC SCH ×2 (17:52)
[2016-06-13] MEDS: POLYETHYLENE GLYCOL 3350 17 GM PKT PO PRN (17:53)
[2016-06-13] MEDS: metFORMIN HCL 500 MG TAB PO SCH (17:53)
[2016-06-13] MEDS: WARFARIN SODIUM 2 MG TAB PO SCH (17:53)
[2016-06-13 18:25] LABS: COLOR YELLOW; LEUKOCYTE ESTERASE,URINE NEGATIVE (NEGATIVE); NITRITE,URINE NEGATIVE (NEGATIVE)
[2016-06-13] MEDS: INSULIN GLARGINE 100 UNITS/ML SYRINGE SC SCH (20:42)
[2016-06-13] MEDS: GABAPENTIN 300 MG CAP PO SCH (20:42)
[2016-06-13] MEDS: SENNOSIDES 1 TAB PO SCH (20:43)
[2016-06-13] MEDS: traMADol 50 MG TAB PO PRN (20:57)
[2016-06-14] MEDS: traMADol 50 MG TAB PO PRN ×2 (02:52→08:52)
[2016-06-14] MEDS: ACETAMINOPHEN 325 MG TAB PO SCH ×3 (05:44→17:55)
[2016-06-14] MEDS: IBUPROFEN 600 MG TAB PO SCH ×4 (05:45→20:37)
[2016-06-14] MEDS: ATORVASTATIN CALCIUM 40 MG TAB PO SCH (08:49)
[2016-06-14] MEDS: ASPIRIN 81 MG CHEWABLE TAB PO SCH (08:49)
[2016-06-14] MEDS: FUROSEMIDE 40 MG TAB PO SCH (08:50)
[2016-06-14] MEDS: INSULIN GLARGINE 100 UNITS/ML SYRINGE SC SCH ×2 (08:50→20:37)
[2016-06-14] MEDS: INSULIN LISPRO 100 UNIT/ML SC SCH ×7 (08:51→17:55)
[2016-06-14] MEDS: SENNOSIDES 1 TAB PO SCH ×2 (08:52→20:37)
[2016-06-14] MEDS: metFORMIN HCL 500 MG TAB PO SCH ×2 (08:52→17:55)
[2016-06-14] MEDS: POTASSIUM CL 10 MEQ TAB PO SCH (08:52)
[2016-06-14] MEDS: POLYETHYLENE GLYCOL 3350 17 GM PKT PO PRN (08:52)
[2016-06-14 09:07] LABS: INR 2.12 (0.83-1.16); PROTIME(PATIENT) 23.9 SEC (12.0-15.0)
[2016-06-14] MEDS: WARFARIN SODIUM 2 MG TAB PO SCH (17:55)
[2016-06-14] MEDS: CARBOXYMETHYLCELLULOSE 0.5% 0.4 ML DROPERETTE LEFTEYE SCH (18:04)
[2016-06-14] MEDS: GABAPENTIN 300 MG CAP PO SCH (20:37)
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
[2016-06-15] MEDS: ACETAMINOPHEN 325 MG TAB PO SCH ×5 (00:33→22:44)
[2016-06-15] MEDS: CARBOXYMETHYLCELLULOSE 0.5% 0.4 ML DROPERETTE LEFTEYE SCH ×5 (00:36→17:37)
[2016-06-15] MEDS: IBUPROFEN 600 MG TAB PO SCH ×4 (05:02→21:00)
[2016-06-15] MEDS: ASPIRIN 81 MG CHEWABLE TAB PO SCH ×2 (07:44→07:46)
[2016-06-15] MEDS: ATORVASTATIN CALCIUM 40 MG TAB PO SCH (07:44)
[2016-06-15] MEDS: FUROSEMIDE 40 MG TAB PO SCH (07:45)
[2016-06-15] MEDS: traMADol 50 MG TAB PO PRN ×2 (07:46→18:42)
[2016-06-15 09:07] LABS: INR 2.08 (0.83-1.16); PROTIME(PATIENT) 23.5 SEC (12.0-15.0)
[2016-06-15] MEDS: INSULIN LISPRO 100 UNIT/ML SC SCH ×6 (09:15→19:43)
[2016-06-15] MEDS: INSULIN GLARGINE 100 UNITS/ML SYRINGE SC SCH ×2 (09:15→21:17)
[2016-06-15] MEDS: metFORMIN HCL 500 MG TAB PO SCH ×2 (09:16→17:37)
[2016-06-15] MEDS: SENNOSIDES 1 TAB PO SCH ×2 (09:20→21:21)
[2016-06-15] MEDS: POTASSIUM CL 10 MEQ TAB PO SCH (09:21)
--- NOTE | 2016-06-15 14:20 | SOAPPROG ---
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 * Debility s/p MVreplacement c/b CVA cont. PT/OT/RN with physiatry supervision * Encephalopathy and dysphasia: [employer] eval * Fluid overload s/p hospitalization/cardiac surgery: daily wts, cont. lasix and KCl to taper as able * DM2: cont Metformin 1g BID, cont. current insulin to titrate as able * Anticoagulation s/p MVR: therapeutic on warfarin since 06/09, cont. 3 months ( until ~09/01/2016) * Dyslipidemia, cont. atorva * Postop Anemia: will CTM F/U: Dr. Brown 06/17 @ 11am Likely dispo home with family and therapies, ELOS 10-14 days Subjective: No events. Doing better today, more participatory and adherent. Denies SOB/CP Objective: Vital Signs Temp Pulse Resp BP Pulse Ox 36.7 C 54 L 16 123/91 H 95 06/15/16 06:00 06/15/16 08:00 06/15/16 08:00 06/15/16 08:00 06/15/16 08:00 06/14/16 06/15/16 06/16/16 05:59 05:59 05:59 Intake Total 590 1160 1700 Output Total 575 400 300 Balance 15 760 1400 PT 23.5 SEC (12.0-15.0) H 06/15/16 05:20 INR 2.08 (0.83-1.16) H 06/15/16 05:20 - Pending Discharge Pending Discharge Within 24 Hours: No Pending Discharge Within 48 Hours: No Physical Exam - Physical Exam General Appearance: alert, no apparent distress Neck: supple Respiratory: decreased breath sounds Cardiac/Chest: regular rate, rhythm Abdomen: normal bowel sounds, non-tender Skin: normal color, warm/dry Neuro/Psych: alert, normal mood/affect, oriented x 3, No cognition abnormalities , No speech abnormalities ICD10 Worksheet Patient Problems: Problems Problem Status Onset Acute blood loss anemia Acute Diabetes mellitus out of control Acute Postoperative stroke Acute S/P mitral valve replacement with bioprosthetic valve Acute ~06/06/16 Severe mitral regurgitation Acute
[2016-06-15] MEDS: WARFARIN SODIUM 2 MG TAB PO SCH (15:41)
[2016-06-15] MEDS: GABAPENTIN 300 MG CAP PO SCH (21:00)
[2016-06-16] MEDS: traMADol 50 MG TAB PO PRN ×3 (01:09→14:09)
[2016-06-16] MEDS: CARBOXYMETHYLCELLULOSE 0.5% 0.4 ML DROPERETTE LEFTEYE SCH ×3 (02:25→13:04)
[2016-06-16] MEDS: ACETAMINOPHEN 325 MG TAB PO SCH ×2 (04:59→13:03)
[2016-06-16] MEDS: IBUPROFEN 600 MG TAB PO SCH ×2 (05:52→13:05)
--- NOTE | 2016-06-16 08:51 | SOAPPROG ---
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 Ambulated 150' CGA FWW. Min A to transfer. Cues for sternal precautions. Has L hand weakness; needs min A for for lower body dressing and bathing. Continue physical therapy and occupational therapy to optimize mobility and activities of daily living. * Encephalopathy and dysphagia. Very impulsive feeding, not safe to advance beyond DD2. Cognitive screeing not completed due to behavior. Continue treatment per Speech and Language Pathology. * Fluid overload, status post hospitalization. Increasing R pleural effusion, increasing O2 need, R chest pain. D/W [facility] 06/16/16 : send to [facility] for obs stay to drain pleural effusion. Hold warfarin today. Continue furosemide and potassium chloride, daily weight, monitor fluid status, and taper diuretic if possible. * Behavioral issues seem to have improved since 2 days ago. Continue to set limits and encourage compliance with the rehabilitation program. * Diabetes mellitus type 2. He comes out of the hospital on metformin 500 mg twice daily, increased to 1000 mg twice daily on 06/13/16. Continue current insulin dosing and adjust it as needed. * Anticoagulation, status post mitral valve surgery. He is to remain on warfarin for a total of 3 months. He has been therapeutic on his INR since , so he will continue warfarin through approximately September 01, 2016. * Dyslipidemia, continue atorvastatin. * Postoperative anemia with improvement during the last few days of his hospitalization. Monitor his blood counts. Attended staffing, 15 min. D/W case mgmt, nursing, PT, OT, CHUCK BONER. Plan for discharge 06/23/16. Case mgmt to determine care available at daughter's home. Followup was scheduled with cardiothoracic surgeon, Dr. Brown, 06/17/2016 at 11: 00 a.m. 06/16/16 14:49 Subjective: C/O chest wall pain B. Hurts more at incision when supine. Also notes "rattling" in chest when breathing supine but denies dyspnea. No f/c. Bowels moving. Objective: Vital Signs Temp Pulse Resp BP Pulse Ox 36.6 C 59 L 18 105/60 94 06/16/16 06:14 06/16/16 06:14 06/16/16 06:14 06/16/16 06:14 06/16/16 06:14 06/15/16 06/16/16 06/17/16 05:59 05:59 05:59 Intake Total 1160 2820 Output Total 400 500 Balance 760 2320 PT 23.5 SEC (12.0-15.0) H 06/15/16 05:20 INR 2.08 (0.83-1.16) H 06/15/16 05:20 - Time Spent With Patient Time Spent With Patient: Greater than 35 minutes floor time today, including more than 50% of time in coordination of care during staffing meeting, and counseling patient. Physical Exam - Physical Exam General Appearance: WD/WN, no apparent distress, obese Respiratory: decreased breath sounds, No crackles, No rhonchi, No wheezing Cardiac/Chest: regular rate, rhythm, edema (2+ B LE), JVD Neuro/Psych: alert, normal mood/affect, oriented x 3 ICD10 Worksheet Patient Problems: Problems Problem Status Onset Acute blood loss anemia Acute Diabetes mellitus out of control Acute Postoperative stroke Acute S/P mitral valve replacement with bioprosthetic valve Acute ~06/06/16 Severe mitral regurgitation Acute
[2016-06-16] MEDS: FUROSEMIDE 40 MG TAB PO SCH (09:01)
[2016-06-16] MEDS: ATORVASTATIN CALCIUM 40 MG TAB PO SCH (09:01)
[2016-06-16] MEDS: INSULIN GLARGINE 100 UNITS/ML SYRINGE SC SCH (09:01)
[2016-06-16] MEDS: INSULIN LISPRO 100 UNIT/ML SC SCH ×4 (09:02→13:06)
[2016-06-16] MEDS: metFORMIN HCL 500 MG TAB PO SCH (09:03)
[2016-06-16] MEDS: SENNOSIDES 1 TAB PO SCH (09:03)
[2016-06-16] MEDS: POTASSIUM CL 10 MEQ TAB PO SCH (09:03)
[2016-06-16] MEDS: ASPIRIN 81 MG CHEWABLE TAB PO SCH (09:04)
[2016-06-16 12:42] LABS: INR 2.07 (0.83-1.16); PROTIME(PATIENT) 23.4 SEC (12.0-15.0)
[2016-06-16 13:26] LABS: ANION GAP 10 mEq/L (8-16); CALCIUM 9.1 mg/dL (8.5-10.4); CARBON DIOXIDE 29 mEq/l (22-31); CHLORIDE 97 mEq/L (97-110); CREATININE 0.8 mg/dL (0.7-1.3); GLOMERULAR FILTRATION RATE > 60; GLUCOSE 173 mg/dL (70-100); POTASSIUM 4.5 mEq/L (3.5-5.2); SODIUM 136 mEq/L (134-144)
--- NOTE | 2016-06-17 17:26 | SOAPPROG ---
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 * Debility, status post mitral valve surgery and postoperative cerebrovascular accident. Resume PT & OT. Prior to thoracentesis, initial FIM was 79 on . He had 150' CGA FWW. Min A to transfer. Cues for sternal precautions. Had L hand weakness; needed min A for for lower body dressing and bathing. * Encephalopathy and dysphagia. Very impulsive feeding, not safe to advance beyond DD2. Cognitive screening not completed due to behavior. Continue treatment per Speech and Language Pathology. * Pleural effusion. S/P thoracentesis today 06/17/16 with near resolution of R pleural effusion and R chest pain. Warfarin has been stopped due to concern that effusion was bloody. * Fluid overload, status post hospitalization. Continue furosemide and potassium chloride, daily weight, monitor fluid status, and taper diuretic if possible. * Behavioral issues seem to have improved since 06/14/16. Continue to set limits and encourage compliance with the rehabilitation program. * Diabetes mellitus type 2. He came out of the hospital initially on metformin 500 mg twice daily, increased to 1000 mg twice daily on 06/13/16. * Anticoagulation, status post mitral valve surgery. Continue ASA. * Dyslipidemia, continue atorvastatin. * Postoperative anemia with improvement during the last few days of his hospitalization. Monitor his blood counts. Plan for discharge 06/23/16. Case mgmt to determine care available at daughter's home. Followup with cardiothoracic surgeon, Dr. Brown, 06/24/2016 at 11:45 a.m. 06/17/16 17:29 Subjective: Returned form observation stay at [facility] where he had thoracentesis. Per nurse report, 1300 cc was drained from R pleural space. CXR documented improvement and no pneumothorax. Patient reports much improved breathing and minimal R chest pain. Objective: Vital Signs Temp Pulse Resp BP Pulse Ox 36.7 C 70 20 128/62 H 96 06/16/16 14:00 06/16/16 14:00 06/16/16 14:00 06/16/16 14:00 06/16/16 14:00 Laboratory Results 02/27/17 08:45 06/16/16 06/17/16 06/18/16 05:59 05:59 05:59 Intake Total 2820 478 Output Total 500 200 Balance 2320 278 PT 23.4 SEC (12.0-15.0) H 06/16/16 08:45 INR 2.07 (0.83-1.16) H 06/16/16 08:45 Physical Exam - Physical Exam General Appearance: WD/WN, alert, no apparent distress, obese Respiratory: decreased breath sounds, No crackles, No rhonchi, No wheezing Cardiac/Chest: regular rate, rhythm, edema (2+ B pretibial), JVD Abdomen: normal bowel sounds, non-tender, soft, No distended Neuro/Psych: no motor/sensory deficits, alert, normal mood/affect, oriented x 3 ICD10 Worksheet Patient Problems: Problems Problem Status Onset Pleural effusion, right Acute S/P thoracentesis Acute Diabetes mellitus out of control Chronic Postoperative stroke Chronic S/P mitral valve replacement with bioprosthetic valve Chronic ~06/06/16
[2016-06-17] MEDS ORDERED: D50W 25 GM/50 ML SYR IVP PRN (17:32)
[2016-06-17] MEDS ORDERED: CARBOXYMETHYLCELLULOSE 0.5% 0.4 ML DROPERETTE EACHEYE PRN (17:39)
[2016-06-17] MEDS: traMADol 50 MG TAB PO PRN (18:19)
[2016-06-17] MEDS: metFORMIN HCL 500 MG TAB PO SCH (18:20)
[2016-06-17] MEDS: INSULIN LISPRO 100 UNIT/ML SC SCH (18:21)
[2016-06-17] MEDS: GABAPENTIN 300 MG CAP PO SCH (20:07)
[2016-06-17] MEDS: IBUPROFEN 600 MG TAB PO SCH (20:07)
[2016-06-18] MEDS: traMADol 50 MG TAB PO PRN ×4 (00:44→20:08)
[2016-06-18] MEDS: ACETAMINOPHEN 325 MG TAB PO PRN ×3 (02:56→22:46)
[2016-06-18] MEDS: IBUPROFEN 600 MG TAB PO SCH ×4 (04:57→20:09)
[2016-06-18] MEDS: POTASSIUM CL 10 MEQ TAB PO SCH (07:57)
[2016-06-18] MEDS: metFORMIN HCL 500 MG TAB PO SCH ×2 (07:57→16:57)
[2016-06-18] MEDS: ASPIRIN 325 MG TAB PO SCH (07:57)
[2016-06-18] MEDS: FUROSEMIDE 40 MG TAB PO SCH (07:57)
[2016-06-18] MEDS: INSULIN LISPRO 100 UNIT/ML SC SCH ×3 (07:57→16:56)
[2016-06-18] MEDS: ATORVASTATIN CALCIUM 40 MG TAB PO SCH (07:57)
--- NOTE | 2016-06-18 09:31 | SOAPPROG ---
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 Thoracentesis for R pleural effusion 06/17. * Debility, status post mitral valve surgery and postoperative cerebrovascular accident. Resume PT & OT. Prior to thoracentesis, initial FIM was 79 on . He had walked 150' CGA FWW. Min A to transfer. Cues for sternal precautions. Had L hand weakness; needed min A for for lower body dressing and bathing. * Encephalopathy and dysphagia. Very impulsive feeding, not safe to advance beyond DD2. Cognitive screening not completed due to behavior. Continue treatment per Speech and Language Pathology. * Pleural effusion. S/P thoracentesis 06/17/16 with near resolution of R pleural effusion and R chest pain. Warfarin has been stopped due to concern that effusion was bloody. * Fluid overload, status post hospitalization. Continue furosemide and potassium chloride, daily weight, monitor fluid status, and taper diuretic if possible. * Hypoxia. CHF? Hope for improvement as heart heals from surgery. Anemia contributes. Likely component of obesity hypoventilation. Continue to encourage incentive spirometry. * Behavioral issues seem to have improved since 06/14/16. Continue to set limits and encourage compliance with the rehabilitation program. * Diabetes mellitus type 2. He came out of the hospital initially on metformin 500 mg twice daily, increased to 1000 mg twice daily on 06/13/16. * Anticoagulation, status post mitral valve surgery. Continue ASA. * Dyslipidemia, continue atorvastatin. * Postoperative anemia with improvement during the last few days of his hospitalization. Monitor his blood counts. Plan for discharge 06/23/16. Case mgmt to determine care available at daughter's home. Followup with cardiothoracic surgeon, Dr. Brown, 06/24/2016 at 11:45 a.m. 06/18/16 09:25 Subjective: Concerned re whether water is reaccumulating on lungs, and re edema in legs. Slept well. No cough/dyspnea. Using incentive spirometer. Not in pain. Objective: Vital Signs Temp Pulse Resp BP Pulse Ox 36.4 C 57 L 17 122/58 H 96 06/18/16 05:35 06/18/16 05:35 06/18/16 05:35 06/18/16 05:35 06/18/16 05:35 Laboratory Results 06/16/16 08:45 06/17/16 06/18/16 06/19/16 05:59 05:59 05:59 Intake Total 478 300 Output Total 200 Balance 278 300 PT 23.4 SEC (12.0-15.0) H 06/16/16 08:45 INR 2.07 (0.83-1.16) H 06/16/16 08:45 Physical Exam - Physical Exam General Appearance: WD/WN, alert, no apparent distress, obese Respiratory: decreased breath sounds, other (very short inspirations, even with incentive spirometer), No crackles, No rhonchi, No wheezing Cardiac/Chest: regular rate, rhythm, edema (2+ pretibial B) Skin: normal color, warm/dry Neuro/Psych: no motor/sensory deficits, alert, normal mood/affect ICD10 Worksheet Patient Problems: Problems Problem Status Onset Pleural effusion, right Acute S/P thoracentesis Acute Diabetes mellitus out of control Chronic Postoperative stroke Chronic S/P mitral valve replacement with bioprosthetic valve Chronic ~06/06/16
[2016-06-18] MEDS: SENNOSIDES 1 TAB PO PRN (11:47)
[2016-06-18] MEDS: POLYETHYLENE GLYCOL 3350 17 GM PKT PO SCH (12:04)
[2016-06-18] MEDS: BISACODYL 10 MG SUPP PR PRN (15:12)
[2016-06-18] MEDS: GABAPENTIN 300 MG CAP PO SCH (20:09)
[2016-06-19] MEDS: traMADol 50 MG TAB PO PRN ×4 (02:14→21:26)
[2016-06-19] MEDS: IBUPROFEN 600 MG TAB PO SCH ×3 (06:07→15:24)
[2016-06-19] MEDS ORDERED: POLYETHYLENE GLYCOL 3350 17 GM PKT PO SCH (09:00)
[2016-06-19] MEDS: ATORVASTATIN CALCIUM 40 MG TAB PO SCH (09:20)
[2016-06-19] MEDS: oxyCODONE IR 5 MG TAB PO PRN (09:20)
[2016-06-19] MEDS: POLYETHYLENE GLYCOL 3350 17 GM PKT PO SCH (09:20)
[2016-06-19] MEDS: metFORMIN HCL 500 MG TAB PO SCH ×2 (09:21→18:21)
[2016-06-19] MEDS: FUROSEMIDE 40 MG TAB PO SCH (09:21)
[2016-06-19] MEDS: POTASSIUM CL 10 MEQ TAB PO SCH (09:21)
[2016-06-19] MEDS: SENNOSIDES 1 TAB PO PRN (09:21)
[2016-06-19] MEDS: ASPIRIN 325 MG TAB PO SCH (09:22)
--- NOTE | 2016-06-19 10:55 | SOAPPROG ---
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 Thoracentesis for R pleural effusion 06/17. * Debility, status post mitral valve surgery and postoperative cerebrovascular accident. Resume PT & OT. Prior to thoracentesis, initial FIM was 79 on . He had walked 150' CGA FWW. Min A to transfer. Cues for sternal precautions. Had L hand weakness; needed min A for for lower body dressing and bathing. * Encephalopathy and dysphagia. Very impulsive feeding, not safe to advance beyond DD2. Cognitive screening not completed due to behavior. Continue treatment per Speech and Language Pathology. * Pleural effusion. S/P thoracentesis 06/17/16 with near resolution of R pleural effusion and R chest pain. Warfarin has been stopped due to concern that effusion was bloody. * Fluid overload, status post hospitalization. Continue furosemide and potassium chloride, daily weight, monitor fluid status, and taper diuretic if possible. Stop ibuprofen today 06/19/16. * Cough with clear sputum, post-operative chest pain exacerbated by cough. CXR with slight increase of pleural effusion s/p thoracentesis. CBC with leukocytosis; anemia worse with Hgb from 9.8 to 9.1. CMP with mild hyponatremia with Na 131. Echo 06/09/16 with normal systolic function. Nt-BNP elevated but may be artifact of recent surgery. Will start cough suppressant with guaifenesin/dextromethorphan; trial of albuterol MDI QID. * Hypoxia. CHF? Echo 06/09/16 not c/w CHF but no comment re diastolic fn. Hope for improvement as heart heals from surgery. Anemia contributes. Likely component of obesity hypoventilation. Continue to encourage incentive spirometry. * Anemia, worse, had bloody pleural effusion. Recheck in AM. * Hyponatremia. Most likely hypervolemic, due to CHF? Check orthostatic BP & pulse. Check TSH, cortisol, U & S osm, U Na. Recheck BMP in AM. * Behavioral issues seem to have improved since 06/14/16. Continue to set limits and encourage compliance with the rehabilitation program. * Diabetes mellitus type 2. He came out of the hospital initially on metformin 500 mg twice daily, increased to 1000 mg twice daily on 06/13/16. * Anticoagulation, status post mitral valve surgery. Continue ASA. * Dyslipidemia, continue atorvastatin. * Postoperative anemia with improvement during the last few days of his hospitalization. Monitor his blood counts. Plan for discharge 06/24/16. Case mgmt to determine care available at daughter's home. Repeat staffing 06/20/16. Followup with cardiothoracic surgeon, Dr. Brown, 06/24/2016 at 11:45 a.m. 06/19/16 17:31 Subjective: C/O cough and increased chest pain. Has clear sputum. Feels chilled. Denies URI Sx. Objective: Vital Signs Temp Pulse Resp BP Pulse Ox 36.7 C 55 L 18 126/53 H 92 06/18/16 20:00 06/18/16 20:00 06/18/16 20:00 06/18/16 20:00 06/18/16 20:00 Laboratory Results 06/16/16 08:45 06/18/16 06/19/16 06/20/16 05:59 05:59 05:59 Intake Total 300 614 350 Output Total 750 Balance 300 -136 350 PT 23.4 SEC (12.0-15.0) H 06/16/16 08:45 INR 2.07 (0.83-1.16) H 06/16/16 08:45 Physical Exam - Physical Exam General Appearance: WD/WN, alert, no apparent distress, obese Respiratory: normal breath sounds, rhonchi (Exp bilateral), No crackles, No wheezing Cardiac/Chest: regular rate, rhythm, edema (2 -3 + B pretibial), JVD Neuro/Psych: no motor/sensory deficits, alert, normal mood/affect, oriented x 3 , abnormal gait (With FWW and PT: flexed posture, wide base, slow, step-through pattern.) ICD10 Worksheet Patient Problems: Problems Problem Status Onset Pleural effusion, right Acute S/P thoracentesis Acute Diabetes mellitus out of control Chronic Postoperative stroke Chronic S/P mitral valve replacement with bioprosthetic valve Chronic ~06/06/16
[2016-06-19] MEDS: INSULIN LISPRO 100 UNIT/ML SC SCH ×3 (10:59→18:23)
[2016-06-19 13:38] LABS: % IMMATURE GRANULYOCYTES 1.2 % (0.0-1.1); ABSOLUTE IMMATURE GRANULOCYTES 0.13 10^3/uL (0.00-0.10); ADD DIFF? NO; ADD MORPH? NO; ADD SCAN? NO; ATYPICAL LYMPHOCYTE FLAG 0 (0-99); FRAGMENT RBC FLAG 0 (0-99); HEMATOCRIT 29.1 % (40.0-51.0); HEMOGLOBIN 9.1 g/dL (13.7-17.5); LEFT SHIFT FLG 20 (0-99); LIPEMIA HEMOLYSIS FLAG 80 (0-99); MEAN CELL HEMOGLOBIN 27.9 pg (27.9-34.1); MEAN CELL HEMOGLOBIN CONCENTR. 31.3 g/dL (32.4-36.7); MEAN CELL VOLUME 89.3 fL (81.5-99.8); MEAN PLATELET VOLUME 9.7 fL (8.7-11.7); PLATELET CLUMPS FLAG 0 (0-99); PLATELET COUNT 493 10^3/uL (150-400); RED BLOOD CELL COUNT 3.26 10^6/uL (4.40-6.38); RED CELL DISTRIBUTION WIDTH 13.3 % (11.5-15.2)
[2016-06-19 13:57] LABS: ALANINE AMINOTRANSFERASE 29 IU/L (21-72); ALBUMIN 2.8 g/dL (3.5-5.0); ALKALINE PHOSPHATASE 80 IU/L (38-126); ANION GAP 8 mEq/L (8-16); ASPARTATE AMINOTRANSFERASE 17 IU/L (17-59); BILIRUBIN,TOTAL 0.7 mg/dL (0.1-1.4); CARBON DIOXIDE 30 mEq/l (22-31); CHLORIDE 93 mEq/L (97-110); CREATININE 0.7 mg/dL (0.7-1.3); GLOMERULAR FILTRATION RATE > 60; GLUCOSE 240 mg/dL (70-100); POTASSIUM 5.2 mEq/L (3.5-5.2); SODIUM 131 mEq/L (134-144); TOTAL PROTEIN 6.1 g/dL (6.3-8.2)
[2016-06-19] MEDS ORDERED: GUAIFENESIN/DM 10 ML UDCUP PO PRN (17:30)
--- NOTE | 2016-06-19 18:10 | PDOREHIP ---
Admission [facility] - Admission - 3 Day Assessment Period Admission Date/Day 1: 06/13/16 Day 2: 06/14/16 Day 3: 06/15/16 - Active Diagnoses Comorbidities and Co-existing Conditions at Admission: 55136. DM (e.g. diabetic retinopathy, nephropathy, and neuropathy) - Skin Conditions Unhealed Pressure Ulcer (1 or more/Stage 1 or >)-Admission: 0. No (Late entry for 06/13/16)
[2016-06-19 19:07] LABS: COLOR YELLOW; LEUKOCYTE ESTERASE,URINE NEGATIVE (NEGATIVE); NITRITE,URINE NEGATIVE (NEGATIVE)
[2016-06-19] MEDS: GABAPENTIN 300 MG CAP PO SCH (21:05)
[2016-06-19] MEDS: ALBUTEROL 60 PUFFS/8 GM MDI IH SCH (21:07)
[2016-06-20] MEDS: oxyCODONE IR 5 MG TAB PO PRN ×5 (01:38→22:21)
[2016-06-20] MEDS: traMADol 50 MG TAB PO PRN ×2 (05:48→20:23)
[2016-06-20] MEDS: ALBUTEROL 60 PUFFS/8 GM MDI IH SCH ×5 (05:51→20:24)
[2016-06-20] MEDS: ACETAMINOPHEN 325 MG TAB PO PRN ×2 (06:19→13:44)
[2016-06-20] MEDS: INSULIN LISPRO 100 UNIT/ML SC SCH ×3 (08:42→17:02)
[2016-06-20] MEDS: POLYETHYLENE GLYCOL 3350 17 GM PKT PO SCH (08:46)
[2016-06-20] MEDS: ASPIRIN 325 MG TAB PO SCH (08:48)
[2016-06-20] MEDS: FUROSEMIDE 40 MG TAB PO SCH (08:48)
[2016-06-20] MEDS: metFORMIN HCL 500 MG TAB PO SCH ×2 (08:48→17:04)
[2016-06-20] MEDS: POTASSIUM CL 10 MEQ TAB PO SCH (08:49)
[2016-06-20] MEDS: ATORVASTATIN CALCIUM 40 MG TAB PO SCH (08:50)
[2016-06-20 09:09] LABS: ANION GAP 9 mEq/L (8-16); CALCIUM 8.7 mg/dL (8.5-10.4); CARBON DIOXIDE 28 mEq/l (22-31); CHLORIDE 95 mEq/L (97-110); CREATININE 0.7 mg/dL (0.7-1.3); GLOMERULAR FILTRATION RATE > 60; GLUCOSE 222 mg/dL (70-100); SODIUM 132 mEq/L (134-144)
[2016-06-20] MEDS: SENNOSIDES 1 TAB PO PRN ×2 (11:40→20:27)
--- NOTE | 2016-06-20 12:44 | SOAPPROG ---
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 Thoracentesis for R pleural effusion 06/17. * Debility, status post mitral valve surgery and postoperative cerebrovascular accident. Resume PT & OT. Prior to thoracentesis, initial FIM was 79 on ; still at 79 on 06/20/16. Walking 150', advanced from CGA to SBA with FWW. Climbed and descended stairs with 2 rails though has 1 rail at home. Cues for sternal precautions. Min A UB dressing, mod A LB. Set-up to min A for shower. Continue PT and OT to optimize mobility and ADLs. He is not completely compliant with therapy. * Encephalopathy and dysphagia. Very impulsive feeding, not safe to advance beyond DD2. Cognitive screening not completed due to behavior, but mild to moderate deficit to new learning has been observed. Will not be able to manage medications independently. Continue treatment per Speech and Language Pathology. * Chest pain s/p sternotomy. Adequate control with tramadol and APAP. Not worse with D/C of ibuprofen. * Pleural effusion. S/P thoracentesis 06/17/16 with near resolution of R pleural effusion and R chest pain. Warfarin has been stopped due to concern that effusion was bloody. * Fluid overload, status post hospitalization. Not diuresing effectively with persistent edema and stable weight. Stopped ibuprofen 06/19/16. Will increase furosemide to 40 mg QAM, 60 mg QPM at 1400. Add low-dose lisinopril at 2.5 mg QD starting 06/20/16. * Cough with clear sputum, post-operative chest pain exacerbated by cough. CXR 06/19/16 with slight increase of pleural effusion s/p thoracentesis. CBC with leukocytosis; anemia worse with Hgb from 9.8 to 9.1. CMP with mild hyponatremia with Na 131. Echo 06/09/16 with paradoxical septal motion and pseudonormalization c/w diastolic dysfn. Nt-BNP elevated but may be artifact of recent surgery. Improved with guaifenesin/dextromethorphan PRN and albuterol MDI QID. * Hypoxia. CHF? Echo 06/09/16 not c/w CHF but no comment re diastolic fn. Hope for improvement as heart heals from surgery. Anemia contributes. Likely component of obesity hypoventilation. Continue to encourage incentive spirometry. Increase furosemide and start lisinopril as above. * Hyponatremia. Most likely hypervolemic, due to CHF? Not orthostatic on . TSH, cortisol wnl. U & S osm, U Na, FeNa c/w hypervolemia, not SIADH. BMP improved with Na from 131 to 132 on 06/20/16. Recheck in AM 06/21/16. * Anemia, worse, had bloody pleural effusion. Dilutional with hypervolemia?. Recheck H/H in AM 06/21/16. * Behavioral issues seem to have improved since 06/14/16. Continue to set limits and encourage compliance with the rehabilitation program. * Diabetes mellitus type 2. He came out of the hospital initially on metformin 500 mg twice daily, increased to 1000 mg twice daily on 06/13/16. BS still often in 200s. Start glipizide 2.5 mg BID on 06/20/16; titrate if necessary and as appetite improves. * Anticoagulation, status post mitral valve surgery. Continue ASA. * Dyslipidemia, continue atorvastatin. Attended staffing, 15 min. D/W case mgmt, nursing, PT, OT, [employer]. Continue planned discharge home with assistance of daughter and other family members on . Followup with cardiothoracic surgeon, Dr. Brown, 06/24/2016 at 11:45 a.m. 06/20/16 13:28 Subjective: Chest pain and cough are improved. Feels tired. Reduced appetite but eating. Objective: Vital Signs Temp Pulse Resp BP Pulse Ox 36.9 C 53 L 16 134/63 H 84 L 06/20/16 05:03 06/20/16 05:03 06/20/16 05:03 06/20/16 05:03 06/20/16 11:40 Laboratory Results 06/19/16 12:00 06/20/16 05:30 06/19/16 06/20/16 06/21/16 05:59 05:59 05:59 Intake Total 614 1430 300 Output Total 750 900 Balance -136 530 300 PT 23.4 SEC (12.0-15.0) H 06/16/16 08:45 INR 2.07 (0.83-1.16) H 06/16/16 08:45 - Time Spent With Patient Time Spent With Patient: Greater than 35 minutes floor time today, including more than 50% of time in coordination of care during staffing meeting, and counseling patient. Physical Exam - Physical Exam General Appearance: alert, no apparent distress, obese Respiratory: normal breath sounds, other (reduced air movement), No crackles, No rhonchi, No wheezing Cardiac/Chest: regular rate, rhythm, edema (2+ B LE), JVD Skin: normal color, warm/dry Neuro/Psych: no motor/sensory deficits, alert, normal mood/affect, oriented x 3 , other (Ambulates slowly, step-through pattern, widened base of support, flexed posture, FWW) ICD10 Worksheet Patient Problems: Problems Problem Status Onset Pleural effusion, right Acute S/P thoracentesis Acute Diabetes mellitus out of control Chronic Postoperative stroke Chronic S/P mitral valve replacement with bioprosthetic valve Chronic ~06/06/16
[2016-06-20] MEDS: LISINOPRIL 2.5 MG TAB PO SCH (13:16)
[2016-06-20] MEDS ORDERED: FUROSEMIDE 20 MG TAB PO SCH (14:00)
[2016-06-20] MEDS ORDERED: PNEUMOC 13-VAL CONJ-DIP CRM/PF 0.5 ML SYR IM ONE (14:12)
[2016-06-20] MEDS: GABAPENTIN 300 MG CAP PO SCH (20:25)
[2016-06-20] MEDS: glipiZIDE 5 MG TAB PO SCH (20:25)
[2016-06-21] MEDS: oxyCODONE IR 5 MG TAB PO PRN ×2 (04:55→07:40)
[2016-06-21] MEDS: traMADol 50 MG TAB PO PRN ×3 (06:12→20:02)
[2016-06-21] MEDS: ALBUTEROL 60 PUFFS/8 GM MDI IH SCH ×4 (06:15→20:08)
[2016-06-21] MEDS: ASPIRIN 325 MG TAB PO SCH (07:40)
[2016-06-21 09:06] LABS: ANION GAP 8 mEq/L (8-16); CALCIUM 9.2 mg/dL (8.5-10.4); CARBON DIOXIDE 31 mEq/l (22-31); CHLORIDE 92 mEq/L (97-110); CREATININE 0.7 mg/dL (0.7-1.3); GLOMERULAR FILTRATION RATE > 60; GLUCOSE 233 mg/dL (70-100); POTASSIUM 4.9 mEq/L (3.5-5.2); SODIUM 131 mEq/L (134-144)
[2016-06-21] MEDS: INSULIN LISPRO 100 UNIT/ML SC SCH ×3 (09:32→17:19)
[2016-06-21] MEDS: metFORMIN HCL 500 MG TAB PO SCH ×2 (09:32→17:19)
[2016-06-21] MEDS: FUROSEMIDE 40 MG TAB PO SCH ×2 (09:33→14:20)
[2016-06-21] MEDS: LISINOPRIL 2.5 MG TAB PO SCH (09:33)
[2016-06-21] MEDS: POTASSIUM CL 10 MEQ TAB PO SCH (09:33)
[2016-06-21] MEDS: ATORVASTATIN CALCIUM 40 MG TAB PO SCH (09:34)
[2016-06-21] MEDS: glipiZIDE 5 MG TAB PO SCH ×2 (09:37→20:03)
--- NOTE | 2016-06-21 09:55 | SOAPPROG ---
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 Thoracentesis for R pleural effusion 06/17. * Debility, status post mitral valve surgery and postoperative cerebrovascular accident. Resume PT & OT. Prior to thoracentesis, initial FIM was 79 on ; still at 79 on 06/20/16. Walking 150', advanced from CGA to SBA with FWW. Climbed and descended stairs with 2 rails though has 1 rail at home. Cues for sternal precautions. Min A UB dressing, mod A LB. Set-up to min A for shower. Continue PT and OT to optimize mobility and ADLs. He is not completely compliant with therapy. * Encephalopathy and dysphagia. Very impulsive feeding, not safe to advance beyond DD2. Speech therapy is trialing DD3 today. Speech was evaluating his eating today Cognitive screening not completed due to behavior, but mild to moderate deficit to new learning has been observed. Will not be able to manage medications independently. Continue treatment per Speech and Language Pathology. * Chest pain s/p sternotomy. Adequate control with tramadol and APAP. Not worse with D/C of ibuprofen. * Pleural effusion. Crackles right lung field. CXR ordered today. S/P thoracentesis 06/17/16 with near resolution of R pleural effusion and R chest pain. Warfarin has been stopped due to concern that effusion was bloody. * Fluid overload, status post hospitalization. Discussed case with Dr Vasquez , nephrology , who will see patient today. He recommended increasing Lasix to 40mg BID. ORDER SUBMITTED. U/A for protein, Na and Cr ordered. Not diuresing effectively with persistent edema and stable weight. Stopped ibuprofen 06/19/16. Will increase furosemide to 40 mg QAM, 60 mg QPM at 1400. Add low-dose lisinopril at 2.5 mg QD starting 06/20/16. * Cough with clear sputum, post-operative chest pain exacerbated by cough. CXR 06/19/16 with slight increase of pleural effusion s/p thoracentesis. CBC with leukocytosis; anemia worse with Hgb from 9.8 to 9.1. CMP with mild hyponatremia with Na 131. Echo 06/09/16 with paradoxical septal motion and pseudonormalization c/w diastolic dysfn. Nt-BNP elevated but may be artifact of recent surgery. Improved with guaifenesin/dextromethorphan PRN and albuterol MDI QID. * Hypoxia. CHF? Echo 06/09/16 not c/w CHF but no comment re diastolic fn. Hope for improvement as heart heals from surgery. Anemia contributes. Likely component of obesity hypoventilation. Continue to encourage incentive spirometry. Increase furosemide and start lisinopril as above. * Hyponatremia. Most likely hypervolemic, due to CHF? Not orthostatic on . TSH, cortisol wnl. U & S osm, U Na, FeNa c/w hypervolemia, not SIADH. BMP improved with Na from 131 to 132 on 06/20/16. Recheck in AM 06/21/16. * Anemia, worse, had bloody pleural effusion. Dilutional with hypervolemia?. Recheck H/H in AM 06/21/16. * Behavioral issues seem to have improved since 06/14/16. Continue to set limits and encourage compliance with the rehabilitation program. * Diabetes mellitus type 2. He came out of the hospital initially on metformin 500 mg twice daily, increased to 1000 mg twice daily on 06/13/16. BS still often in 200s. Start glipizide 2.5 mg BID on 06/20/16; titrate if necessary and as appetite improves. * Anticoagulation, status post mitral valve surgery. Continue ASA. * Dyslipidemia, continue atorvastatin. Plan: 06/21/16 09:58 Subjective: He c/o sternal pain and stomach pain when coughing. Nursing reports several episodes of diaphoresis. He also has TUCKER. Objective: Vital Signs Temp Pulse Resp BP Pulse Ox 36.8 C 71 17 139/78 H 94 06/21/16 06:20 06/21/16 06:20 06/21/16 06:20 06/21/16 06:20 06/21/16 06:20 Laboratory Results 06/19/16 12:00 06/21/16 08:00 06/20/16 06/21/16 06/22/16 05:59 05:59 05:59 Intake Total 1430 1180 Output Total 900 650 Balance 530 530 PT 23.4 SEC (12.0-15.0) H 06/16/16 08:45 INR 2.07 (0.83-1.16) H 06/16/16 08:45 Physical Exam - Physical Exam General Appearance: WD/WN, alert, no apparent distress EENT: PERRL/EOMI, normal ENT inspection Neck: non-tender, supple, normal inspection Respiratory: normal breath sounds (Decreased on right), crackles (right lung field) Cardiac/Chest: gallop (Possible S3 ), No friction rub Abdomen: distended, No rebound Skin: warm/dry, No cyanosis, No mottled, No pallor Extremities: swelling, No Festus's sign (+3 pitting edema) ICD10 Worksheet Patient Problems: Problems Problem Status Onset Pleural effusion, right Acute S/P thoracentesis Acute Diabetes mellitus out of control Chronic Postoperative stroke Chronic S/P mitral valve replacement with bioprosthetic valve Chronic ~06/06/16
[2016-06-21] MEDS: POLYETHYLENE GLYCOL 3350 17 GM PKT PO SCH (12:22)
[2016-06-21 13:00] LABS: COLOR YELLOW; LEUKOCYTE ESTERASE,URINE NEGATIVE (NEGATIVE); NITRITE,URINE NEGATIVE (NEGATIVE)
[2016-06-21 15:54] LABS: HEMATOCRIT 29.2 % (40.0-51.0); HEMOGLOBIN 9.1 g/dL (13.7-17.5)
[2016-06-21] MEDS: SENNOSIDES 1 TAB PO PRN (17:49)
[2016-06-21] MEDS: ACETAMINOPHEN 325 MG TAB PO PRN (17:49)
[2016-06-21] MEDS: GABAPENTIN 300 MG CAP PO SCH (20:03)
--- NOTE | 2016-06-21 20:15 | GCON ---
REFERRING PHYSICIAN: Jose Recinos MD REASON FOR CONSULTATION: Edema, hyponatremia. HISTORY OF PRESENT ILLNESS: The patient is a 75-year-old gentleman with a history of diabetes and m itral valve insufficiency, who underwent porcine mitral valve replacement on June 06. He was initially going to have a repair; but the exposure became complicated with disruption of the left at rium requiring patch repair. He had a patch repair of a PFO, as well. He probably had a small intr aoperative stroke, and has had some confusion since surgery that is slowly improving. He was [facility] on June 14. He has been progressing with physical therapy here; but has developed worsening lower extremity heide a. He has been started on furosemide; but has been very sluggish to respond to this. His weight is up 2.5 kg from June 06, and 3 kg since admission here. He does have a creatinine level that is normal at 0.7. I did review his echocardiogram postoperatively, which showed an EF of 60%, severe left atrial dilat ion, and a prosthetic mitral valve. Right ventricle appeared normal in size and function. No comme nt on pulmonary pressures. He has some constipation. He complains of having to get up to urinate frequently. His daughter is very concerned about his swollen legs, as her mother on dialysis. PAST MEDICAL HISTORY: See HPI. Type 2 diabetes mellitus, insulin dependent. Hyperlipidemia. Hype rtension. Left anterior fascicular block. Prostate cancer. GERD. SURGICAL HISTORY: Prior prostatectomy. ALLERGIES: NO KNOWN DRUG ALLERGIES. SOCIAL HISTORY: He is retired. 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 His daughter is with him today. He previously was living with his son. FAMILY HISTORY: Noncontributory. REVIEW OF SYSTEMS: See HPI. He complains of ongoing chest pain. His daughter reports confusion th at may be improving a little bit. A couple days ago, he had some visual changes, but none today. Nabil tavarez does have a cough when he eats. He does not have fevers, but feels cold. He denies pain in his m uscles, itching, nausea, vomiting, diarrhea. His blood sugars have been running on the high side. The rest of review of systems negative in detail. MEDICATIONS: Tylenol, Dulcolax, Lasix 40 mg twice daily which was increased this morning from 40 mg in the morning and 20 in the afternoon, Zestril 2.5 mg, metformin 1 g twice daily, MiraLAX schedule d daily, potassium chloride 10 mEq daily, senna and Ultram p.r.n. PHYSICAL EXAMINATION: VITAL SIGNS: Ins and outs yesterday 1.2 L in and 650 cc out. Weights 103.6 kg today down from 104.6 yesterday. Blood pressure 139/78, heart rate of 71, respiratory rate 17 sa turating 94% on 3 L nasal cannula. Temperature 36.8 Celsius. GENERAL: Mildly increased work of br eathing. Slightly tired, slightly confused-appearing, elderly, gentleman, who is overweigh t and sitting in a chair. HEENT: Eyes without scleral icterus. Oral mucosa is moist. NECK: With out lymphadenopathy or visible jugular venous distention. HEART: Sounds are distant but regular ra te and rhythm without murmurs, gallops, or rubs. He has a fairly well-healed midline sternal incisi on. LUNGS: Clear to auscultation bilaterally. ABDOMEN: Obese, distended and tympanitic, but not t carol ann. LOWER EXTREMITIES: With 3+ below the knee and ankle pitting edema. Posterior tibial pulses really not palpable through his edema. SKIN: Without any obvious rashes. NEUROLOGICAL: He answe rs most questions appropriately. Moves upper extremities well. No obvious focal deficits. No faci al droop. MUSCULOSKELETAL: No gross joint swelling or deformity except for swelling in his calves. LABORATORY DATA: Sodium 131, potassium 4.9, CO2 31, BUN 12, creatinine 0.7. Glucose 232. Calcium 9.2. White count 10.6, hemoglobin 9.1, platelets 493. STUDIES: I personally reviewed his chest x-ray, which showed bibasilar pleural effusions and opacit ies, that per report, were better than prior. No pulmonary edema. IMPRESSION AND PLAN: 1. Lower extremity edema: Per review of his weights, he has had some decrease since June 13 with diuretics. He still has a ways to go. His creatinine is normal. His urinalysis was bland wit hout any proteinuria on dipstick. Will check urine protein to creatinine ratio. Urine sodium was l ow despite diuretics on June 19 at 17. He may have some diastolic dysfunction or pulmonary hypert ension. We will increase his Lasix to 40 mg twice daily. If he is not steadily losing weight on , we could go to 80 mg in the morning and 40 in the afternoon. His last serum albumin was 2.8. S ome of this edema is likely due to low oncotic pressure. Continue IFRAH vive and working on ambulatio n. We will not see him daily; but will monitor labs and see periodically as needed and make recomme ndations on diuretic adjustments. I did encourage the patient and his daughter that this problem wi ll improve with time, and that his kidneys do not appear to be affected at this point. 2. Hyponatremia, mild: He is hypervolemic with a low urine sodium. This is due to heart failure. We will diurese him. We will place him on a 1.2 L/day fluid restriction. 3. Congestive heart failure, probably diastolic and possibly pulmonary hypertension: Normal ejecti on fraction. I do not hear a murmur on exam. Continue diuresis. 4. Stroke: His encephalopathy is improving. Continue physical and occupational therapy at home. 5. Hypertension: Blood pressure mildly elevated. He is on lisinopril. This should improve with d iuresis. If we have difficulty with diuresing, we will temporarily hold his lisinopril. Thank you for this consultation. /[id number]/MODL
[2016-06-21 22:42] VITALS: RESP 18
[2016-06-22] MEDS: BISACODYL 10 MG SUPP PR PRN (00:34)
[2016-06-22] MEDS: ACETAMINOPHEN 325 MG TAB PO PRN ×3 (00:54→20:50)
[2016-06-22] MEDS: traMADol 50 MG TAB PO PRN (05:45)
[2016-06-22] MEDS: ALBUTEROL 60 PUFFS/8 GM MDI IH SCH ×4 (05:47→20:53)
[2016-06-22] MEDS: metFORMIN HCL 500 MG TAB PO SCH ×2 (07:59→17:14)
[2016-06-22] MEDS: INSULIN LISPRO 100 UNIT/ML SC SCH ×3 (07:59→17:14)
[2016-06-22] MEDS: POTASSIUM CL 10 MEQ TAB PO SCH (07:59)
[2016-06-22] MEDS: ASPIRIN 325 MG TAB PO SCH (08:00)
[2016-06-22] MEDS: ATORVASTATIN CALCIUM 40 MG TAB PO SCH (08:00)
[2016-06-22] MEDS: FUROSEMIDE 40 MG TAB PO SCH ×2 (08:00→15:08)
[2016-06-22] MEDS: glipiZIDE 5 MG TAB PO SCH ×2 (08:00→20:50)
[2016-06-22] MEDS: POLYETHYLENE GLYCOL 3350 17 GM PKT PO SCH (08:01)
[2016-06-22] MEDS: LISINOPRIL 2.5 MG TAB PO SCH (08:04)
--- NOTE | 2016-06-22 11:17 | SOAPPROG ---
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 Thoracentesis for R pleural effusion 06/17. * Debility, status post mitral valve surgery and postoperative cerebrovascular accident. Resume PT & OT. Prior to thoracentesis, initial FIM was 79 on ; still at 79 on 06/20/16. Walking 150', advanced from CGA to SBA with FWW. Climbed and descended stairs with 2 rails though has 1 rail at home. Cues for sternal precautions. Min A UB dressing, mod A LB. Set-up to min A for shower. Continue PT and OT to optimize mobility and ADLs. He is not completely compliant with therapy. * Encephalopathy and dysphagia. Very impulsive feeding, not safe to advance beyond DD2. Speech therapy is trialing DD3 today. Speech was evaluating his eating today Cognitive screening not completed due to behavior, but mild to moderate deficit to new learning has been observed. Will not be able to manage medications independently. Continue treatment per Speech and Language Pathology. * Chest pain s/p sternotomy. Adequate control with tramadol and APAP. Not worse with D/C of ibuprofen. * Pleural effusion. Crackles less prevalent today. CXR yesterday did not show worsening pleural effusions. S/P thoracentesis 06/17/16 with near resolution of R pleural effusion and R chest pain. Warfarin has been stopped due to concern that effusion was bloody. * Hypervolemic hyponatremia- Cosult by Dr Vasquez, nephrology, reviewed and appreciated. Lasix increased to to 40mg BID, may have to increase am dose to 80 mg on 06/23. . Stopped ibuprofen 06/19/16. Fluid restriction 1.2 L/DAY. Will check Na level in am 06/23. * Cough with clear sputum, post-operative chest pain exacerbated by cough. CXR 06/19/16 with slight increase of pleural effusion s/p thoracentesis. CBC with leukocytosis; anemia worse with Hgb from 9.8 to 9.1. CMP with mild hyponatremia with Na 131. Echo 06/09/16 with paradoxical septal motion and pseudonormalization c/w diastolic dysfn. Nt-BNP elevated but may be artifact of recent surgery. Improved with guaifenesin/dextromethorphan PRN and albuterol MDI QID. * Hypoxia- No c/o SOB THIS AM. PT/OT to check 02 sats during therapy sessions. Diastolic CHF. Hope for improvement as heart heals from surgery. Anemia contributes. Likely component of obesity hypoventilation. Continue to encourage incentive spirometry. Increase furosemide and start lisinopril as above. * Anemia, worse, had bloody pleural effusion. Dilutional with hypervolemia?. H /H 06/21/16 9.4/29.2 --unchanged from previous on 06/19/16 * Behavioral issues seem to have improved since 06/14/16. Continue to set limits and encourage compliance with the rehabilitation program. * Diabetes mellitus type 2. He came out of the hospital initially on metformin 500 mg twice daily, increased to 1000 mg twice daily on 06/13/16. BS still often in 200s. Start glipizide 2.5 mg BID on 06/20/16; titrate if necessary and as appetite improves. * Anticoagulation, status post mitral valve surgery. Continue ASA. * Dyslipidemia, continue atorvastatin. Plan: 06/21/16 09:58 06/22/16 11:19 Subjective: He reports he is feeling better this am. No c/o sob or chest pain. He was seen by Dr Vasquez yesterday. Objective: Vital Signs Temp Pulse Resp BP Pulse Ox 37.1 C 87 18 129/74 H 96 06/22/16 06:50 06/22/16 06:50 06/22/16 06:50 06/22/16 08:04 06/22/16 06:50 Laboratory Results 06/21/16 14:55 06/21/16 08:00 06/21/16 06/22/16 06/23/16 05:59 05:59 05:59 Intake Total 1180 1012 100 Output Total 650 1300 Balance 530 -288 100 PT 23.4 SEC (12.0-15.0) H 06/16/16 08:45 INR 2.07 (0.83-1.16) H 06/16/16 08:45 Physical Exam - Physical Exam General Appearance: WD/WN, alert Respiratory: chest non-tender, lungs clear, normal breath sounds, other (Less crackles today) Cardiac/Chest: edema (+3 pitting edema both lower extremities), No JVD Abdomen: normal bowel sounds, non-tender, soft, distended, No guarding Skin: normal color, warm/dry Extremities: pedal edema, swelling, No Festus's sign Neuro/Psych: alert, normal mood/affect, motor weakness (4/5 UE and LE strength. Giat with FWW decreased step and stride length) ICD10 Worksheet Patient Problems: Problems Problem Status Onset Pleural effusion, right Acute S/P thoracentesis Acute Diabetes mellitus out of control Chronic Postoperative stroke Chronic S/P mitral valve replacement with bioprosthetic valve Chronic ~06/06/16
--- NOTE | 2016-06-22 15:09 | SOAPPROG ---
SOAP Progress Note Assessment/Plan: Assessment: Pt not seen today. Notes, vitals, labs reviewed. O>I, wt down 1.9 kg from yesterday, BP stable. Continue lasix 40mg bid as long as weight steadily trending down. Off NSAIDs. Follow lytes periodically. Will order for tomorrow. Plan: 06/22/16 15:07 06/22/16 15:08 06/22/16 15:09 Objective: Vital Signs Temp Pulse Resp BP Pulse Ox 37.1 C 87 18 129/74 H 96 06/22/16 06:50 06/22/16 06:50 06/22/16 06:50 06/22/16 08:04 06/22/16 06:50 Laboratory Results 06/21/16 14:55 06/21/16 08:00 06/21/16 06/22/16 06/23/16 05:59 05:59 05:59 Intake Total 1180 1012 100 Output Total 650 1300 Balance 530 -288 100 PT 23.4 SEC (12.0-15.0) H 06/16/16 08:45 INR 2.07 (0.83-1.16) H 06/16/16 08:45 ICD10 Worksheet Patient Problems: Problems Problem Status Onset S/P thoracentesis Acute Pleural effusion, right Acute Postoperative stroke Chronic Diabetes mellitus out of control Chronic S/P mitral valve replacement with bioprosthetic valve Chronic ~06/06/16
[2016-06-22] MEDS: oxyCODONE IR 5 MG TAB PO PRN ×3 (15:14→23:36)
[2016-06-22] MEDS: GABAPENTIN 300 MG CAP PO SCH (20:50)
[2016-06-23] MEDS: ACETAMINOPHEN 325 MG TAB PO PRN ×2 (02:14→13:17)
[2016-06-23] MEDS: oxyCODONE IR 5 MG TAB PO PRN ×2 (04:01→20:31)
[2016-06-23] MEDS: ALBUTEROL 60 PUFFS/8 GM MDI IH SCH ×4 (05:30→23:19)
--- NOTE | 2016-06-23 08:45 | SOAPPROG ---
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 Thoracentesis for R pleural effusion 06/17. * Debility, status post mitral valve surgery and postoperative cerebrovascular accident. Resume PT & OT. Prior to thoracentesis, initial FIM was 79 on . He had walked 150' CGA FWW. Min A to transfer. Cues for sternal precautions. Had L hand weakness; needed min A for for lower body dressing and bathing. * Encephalopathy and dysphagia. Very impulsive feeding, not safe to advance beyond DD2. Cognitive screening not completed due to behavior. Continue treatment per Speech and Language Pathology. * Pleural effusion. S/P thoracentesis 06/17/16 with near resolution of R pleural effusion and R chest pain. Warfarin has been stopped due to concern that effusion was bloody. * Fluid overload, status post hospitalization. Continue furosemide; has been titrated to 40 mg BID from 40 mg in AM & 20 mg in PM; appreciate assistance of nephrology. Continue daily weight, monitor fluid status. Stopped ibuprofen 06/19. * Cough with clear sputum, post-operative chest pain exacerbated by cough. O2 requirement increased form 2 L to 3L over past several days as of 06/23/16. CXR with stable or improved pleural effusion s/p thoracentesis, and lower lung consolidation. CBC with leukocytosis; anemia worse with Hgb from 9.8 to 9.1. Repeat CBC today 06/23/16: if WBCs still high, will start Abx for possible pneumonia. Echo 06/09/16 with normal systolic function. Nt-BNP elevated but may be artifact of recent surgery. Will start cough suppressant with guaifenesin/ dextromethorphan; trial of albuterol MDI QID. * Hypoxia. CHF? Echo 06/09/16 not c/w CHF but no comment re diastolic fn. Hope for improvement as heart heals from surgery. Anemia contributes. Likely component of obesity hypoventilation seems to be improving with increased air movement on lung auscultation. Continue to encourage incentive spirometry. * Anemia, worse, had bloody pleural effusion. Recheck. * Hyponatremia. Most likely hypervolemic, due to CHF? Not orthostatic BP & pulse. TSH, cortisol wnl. U & S osm, U Na, uric acid not c/w SIADH. Likely hypervolemic due to CHF/fluid overload. Continue to monitor. Appreciate assistance of Nephrology. * Behavioral issues seem to have improved since 06/14/16. Continue to set limits and encourage compliance with the rehabilitation program. * Diabetes mellitus type 2. He came out of the hospital initially on metformin 500 mg twice daily, increased to 1000 mg twice daily on 06/13/16. BS increased with improved appetite; using 9 - 10 units/day Lispro despite starting glipizide 2.5 mg BID. Increase to 5 mg BID starting 06/23/16. * Anticoagulation, status post mitral valve surgery. Continue ASA. * Dyslipidemia, continue atorvastatin. * Postoperative anemia with improvement during the last few days of his hospitalization. Monitor his blood counts. Mr. Vasquez has a mobility limitation that significantly impairs one or more mobility-related ADLs in the home, and he can use a walker safely, and his functional mobility deficit cannot be resolved with a cane. Plan for discharge 06/24/16, to home with daughter. Followup with cardiothoracic surgeon, Dr. Brown, 06/24/2016 at 11:45 a.m. 06/23/16 09:29 Subjective: C/O feeling chilled. Also has sweats per staff. Breathing feels better. Still has cough occ., with white sputum. Objective: Vital Signs Temp Pulse Resp BP Pulse Ox 36.8 C 76 18 109/61 93 06/23/16 07:08 06/23/16 07:08 06/23/16 07:08 06/23/16 07:08 06/23/16 07:08 Laboratory Results 06/21/16 14:55 06/21/16 08:00 06/22/16 06/23/16 06/24/16 05:59 05:59 05:59 Intake Total 1012 1200 Output Total 1300 2550 Balance -288 -1350 PT 23.4 SEC (12.0-15.0) H 06/16/16 08:45 INR 2.07 (0.83-1.16) H 06/16/16 08:45 Physical Exam - Physical Exam General Appearance: WD/WN, alert, no apparent distress, obese Respiratory: normal breath sounds, No crackles, No rhonchi, No wheezing Cardiac/Chest: regular rate, rhythm, edema (2+ PTE B) Skin: normal color, warm/dry Neuro/Psych: alert, normal mood/affect, oriented x 3 ICD10 Worksheet Patient Problems: Problems Problem Status Onset Pleural effusion, right Acute S/P thoracentesis Acute Diabetes mellitus out of control Chronic Postoperative stroke Chronic S/P mitral valve replacement with bioprosthetic valve Chronic ~06/06/16
[2016-06-23] MEDS: ATORVASTATIN CALCIUM 40 MG TAB PO SCH (08:57)
[2016-06-23] MEDS: FUROSEMIDE 40 MG TAB PO SCH ×2 (08:57→15:08)
[2016-06-23] MEDS: ASPIRIN 325 MG TAB PO SCH (08:57)
[2016-06-23] MEDS: LISINOPRIL 2.5 MG TAB PO SCH (08:57)
[2016-06-23] MEDS: metFORMIN HCL 500 MG TAB PO SCH ×2 (08:58→17:34)
[2016-06-23] MEDS: SENNOSIDES 1 TAB PO PRN (08:58)
[2016-06-23] MEDS: POLYETHYLENE GLYCOL 3350 17 GM PKT PO SCH (08:58)
[2016-06-23] MEDS: glipiZIDE 5 MG TAB PO SCH ×2 (08:58→20:33)
[2016-06-23] MEDS: POTASSIUM CL 10 MEQ TAB PO SCH (08:58)
[2016-06-23] MEDS: INSULIN LISPRO 100 UNIT/ML SC SCH ×3 (08:59→17:34)
[2016-06-23] MEDS ORDERED: glipiZIDE 5 MG TAB PO ONE (09:24)
[2016-06-23 09:41] LABS: ANION GAP 9 mEq/L (8-16); CARBON DIOXIDE 34 mEq/l (22-31); CHLORIDE 92 mEq/L (97-110); CREATININE 0.7 mg/dL (0.7-1.3); GLOMERULAR FILTRATION RATE > 60; GLUCOSE 167 mg/dL (70-100); POTASSIUM 4.9 mEq/L (3.5-5.2); SODIUM 135 mEq/L (134-144)
[2016-06-23] MEDS: BISACODYL 10 MG SUPP PR PRN (15:08)
[2016-06-23 15:12] LABS: % IMMATURE GRANULYOCYTES 0.8 % (0.0-1.1); ABSOLUTE IMMATURE GRANULOCYTES 0.09 10^3/uL (0.00-0.10); ADD DIFF? NO; ADD MORPH? NO; ADD SCAN? NO; ATYPICAL LYMPHOCYTE FLAG 0 (0-99); FRAGMENT RBC FLAG 0 (0-99); HEMATOCRIT 29.3 % (40.0-51.0); HEMOGLOBIN 8.9 g/dL (13.7-17.5); LEFT SHIFT FLG 0 (0-99); LIPEMIA HEMOLYSIS FLAG 80 (0-99); MEAN CELL HEMOGLOBIN 26.1 pg (27.9-34.1); MEAN CELL HEMOGLOBIN CONCENTR. 30.4 g/dL (32.4-36.7); MEAN CELL VOLUME 85.9 fL (81.5-99.8); MEAN PLATELET VOLUME 8.9 fL (8.7-11.7); PLATELET CLUMPS FLAG 10 (0-99); PLATELET COUNT 635 10^3/uL (150-400); RED BLOOD CELL COUNT 3.41 10^6/uL (4.40-6.38); RED CELL DISTRIBUTION WIDTH 13.3 % (11.5-15.2)
--- NOTE | 2016-06-23 17:14 | SOAPPROG ---
SOAP Progress Note Assessment/Plan: Assessment/Plan: Hypervolemia: improving slowly with diuretics, continue Lasix 40mg po BID. Hyponatremia: hypervolemic hyponatremia; Na improved to 135, continue diuretics. HTN: controlled on Lasix and lisinopril. Subjective: No acute events overnight. Pt will hopefully be discharged tomorrow. Still has some swelling. Objective: Vital Signs Temp Pulse Resp BP Pulse Ox 36.8 C 76 18 110/85 H 93 06/23/16 07:08 06/23/16 07:08 06/23/16 07:08 06/23/16 08:57 06/23/16 07:08 Laboratory Results 06/23/16 14:00 06/23/16 05:00 06/22/16 06/23/16 06/24/16 05:59 05:59 05:59 Intake Total 1012 1200 240 Output Total 1300 2550 800 Balance -288 -1350 -560 PT 23.4 SEC (12.0-15.0) H 06/16/16 08:45 INR 2.07 (0.83-1.16) H 06/16/16 08:45 General: alert and oriented, no acute distress Eyes; EOMI, PERRL CV: RRR REsp: nonlabored respirations on NC Abd: Soft, NT Ext: +2 edema BLE Neuro: no asterixis ICD10 Worksheet Patient Problems: Problems Problem Status Onset Pleural effusion, right Acute S/P thoracentesis Acute Diabetes mellitus out of control Chronic Postoperative stroke Chronic S/P mitral valve replacement with bioprosthetic valve Chronic ~06/06/16
[2016-06-23] MEDS: GABAPENTIN 300 MG CAP PO SCH (20:33)
[2016-06-24] MEDS: oxyCODONE IR 5 MG TAB PO PRN (01:07)
[2016-06-24] MEDS: ACETAMINOPHEN 325 MG TAB PO PRN (04:24)
[2016-06-24] MEDS: ALBUTEROL 60 PUFFS/8 GM MDI IH SCH (05:37)
[2016-06-24 06:26] VITALS: BP 123/65; PULSE 77; TEMP 99; O2SAT 93
[2016-06-24] MEDS: ATORVASTATIN CALCIUM 40 MG TAB PO SCH (08:17)
[2016-06-24] MEDS: ASPIRIN 325 MG TAB PO SCH (08:17)
[2016-06-24] MEDS: POLYETHYLENE GLYCOL 3350 17 GM PKT PO SCH (08:18)
[2016-06-24] MEDS: POTASSIUM CL 10 MEQ TAB PO SCH (08:18)
[2016-06-24] MEDS: metFORMIN HCL 500 MG TAB PO SCH (08:18)
[2016-06-24] MEDS: glipiZIDE 5 MG TAB PO SCH (08:18)
[2016-06-24] MEDS: FUROSEMIDE 40 MG TAB PO SCH (08:18)
[2016-06-24] MEDS: LISINOPRIL 2.5 MG TAB PO SCH (08:19)
[2016-06-24] MEDS: INSULIN LISPRO 100 UNIT/ML SC SCH (09:17)
[2016-06-24 10:08] LABS: ANION GAP 11 mEq/L (8-16); CALCIUM 9.3 mg/dL (8.5-10.4); CARBON DIOXIDE 33 mEq/l (22-31); CHLORIDE 92 mEq/L (97-110); CREATININE 0.7 mg/dL (0.7-1.3); GLOMERULAR FILTRATION RATE > 60; GLUCOSE 187 mg/dL (70-100); POTASSIUM 4.8 mEq/L (3.5-5.2); SODIUM 136 mEq/L (134-144)
--- NOTE | 2016-06-24 16:55 | PDOREHIP ---
Admission [facility] - Admission - 3 Day Assessment Period Admission Date/Day 1: 06/13/16 Day 2: 06/14/16 Day 3: 06/15/16 Discharge [facility] - Discharge - 3 Day Assessment Period 2 Days Prior to Anticipated Discharge Date: 06/22/16 1 Day Prior to Anticipated Discharge Date: 06/23/16 Anticipated Discharge Date: 06/24/16 - Discharge Skin Conditions Unhealed Pressure Ulcer (1 or more/Stage 1 or >)-Discharge: 0. No
== END 2016-06-16 17:00 | disposition short-term general hospital (02) | DRG 950 ==
LOC: BREH 12:18 → UNDODISIN 06-16 17:00
PROVIDERS: ADMIT Internal Medicine; ATTEND Internal Medicine
PROC: F07M3ZZ Motor Function Treatment of Musculoskeletal System - Whole Body (ICD-10-PCS; principal; 2016-06-13)
PROC: F08Z7ZZ Vocational Activities and Functional Community or Work Reintegration Skills Treatment (ICD-10-PCS; principal; 2016-06-13)
PROC: F0636ZZ Communicative/Cognitive Integration Skills Treatment of Neurological System - Whole Body (ICD-10-PCS; principal; 2016-06-13)
DX: Z48.812 Encounter for surgical aftercare following surgery on the circulatory system (principal); I69.334 Monoplegia of upper limb following cerebral infarction affecting left non-dominant side; R13.10 Dysphagia, unspecified; Z95.3 Presence of xenogenic heart valve; D64.9 Anemia, unspecified; E66.01 Morbid (severe) obesity due to excess calories; E11.9 Type 2 diabetes mellitus without complications; E78.5 Hyperlipidemia, unspecified; I10 Essential (primary) hypertension; K21.9 Gastro-esophageal reflux disease without esophagitis
CPT/HCPCS: 92507-GN; 92522-GN; 92526; 92610; 97110-GP; 97116-GP; 97162-GP; 97166-GO; 97530-GO; 97530-GP; 97535-GO; G0009; J1815

== ENCOUNTER 2016-06-17 17:15 | Inpatient (IN) | payer OTHER, MEDICAID ==
--- NOTE | 2016-06-25 16:25 | GDS ---
[f rep st] DISCHARGE SUMMARY Corrected report ADMITTING DIAGNOSES: Debility following mitral valve replacement and a postoperative cerebrovascular accident. DISCHARGE DIAGNOSES: Debility following mitral valve replacement and a postoperative cerebrovascular accident. OTHER DISCHARGE DIAGNOSES: Pleural effusion, fluid overload, pneumonia, congestive heart failure, hyponatremia, diabetes mellitus type 2. CONSULTATIONS: He was seen in consultation by Nephrology, Dr. Vasquez. Additionally, he had a transfer for less than 24 hours to [facility] for treatment of a pleural effusion which was drained by Dr. Brown. PROCEDURES: There was a drainage of the pleural effusion. COMPLICATIONS: There were none. HISTORY AND HOSPITAL COURSE: Mr. Vasquez underwent surgery on 06/06/2016 for severe mitral valve insufficiency. He had a mitral valve replacement as well as reconstruction of the left atrial dome and the interatrial septum, and he had a closure of a patent foramen ovale. Postoperatively, there was an episode of left-sided weakness. 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 He was over-sedated at that time on opiates and benzodiazepines which were pharmacologically reversed, and he had improvement in his left upper extremity function. He was stabilized and transferred for rehabilitation. His course in rehabilitation was initially complicated by the reaccumulation of a right pleural effusion for which he was transferred to [facility] for less than 24 hours and underwent a thoracentesis rather per Dr. Brown. It returned 1300 cc of bloody effusion. He had been on warfarin, and this was discontinued due to concern that the bloody effusion would reaccumulate. He had gradual improvement in rehabilitation. He was not always cooperative. He required minimal assistance to transfer. He required cues for sternal precautions. He walked 200 feet with standby assist using a front-wheeled walker. He required assistance for managing his O2. He was able to climb 4 steps with 1 railing and supervision and again assistance with oxygen. He required standby assistance for safety as well but had adequate strength and endurance for basic functional mobility. His family was trained in how to help care for him. Regarding activities of daily living, he was able to do grooming and hygiene standing at the sink with modified independence using an assistive device. Regarding dressing, he had a dressing stick, elastic shoelaces, a long- handled shoehorn and a excelsior machine operator. He needed some assistance for his IFRAH hose. He needed setup for his upper body dressing. He needed minimal assistance for lower body dressing, but he preferred to have assistance with all aspects of ADLs, especially from female family members, and was resistant to retraining. He had dysphagia. He also had encephalopathy. He was noted to be very impulsive with feeding and so was not considered safe to advance his diet texture beyond a dysphagia 2 texture. Regarding fluid overload, which was evident with edema and on chest x-rays, he was taking furosemide; it was increased to 40 mg twice daily. He had been on ibuprofen when he came into the hospital; and this was discontinued because of possible effects on the kidney and exacerbation of edema. He had a cough with clear sputum. He had an increasing O2 requirement from 2 L to 3 L in the several days prior to his discharge. As his pleural effusions cleared, chest x-ray showed lower lung consolidation. He was treated with levofloxacin, which he was continuing upon discharge. He had hyponatremia, which was hypervolemic and likely related to CHF. This improved with fluid restriction. Nephrology was consulted and was helpful. Regarding diabetes mellitus, he was taking metformin 500 mg twice a day. This was increased to 1000 mg twice a day. He continued to have increased blood sugars, especially as his appetite improved. He was begun on glipizide at 2.5 mg twice daily. This was increased to 5 mg twice daily, and his glycemic control improved to where his blood sugars were generally in the low 200s or more often below 200. LABORATORY DATA AND STUDIES: During his stay, on the day before discharge, CBC continued to show an elevated white blood cell count. He had anemia with a hemoglobin of 8.9 and a hematocrit 29.3. This was normocytic. His platelet count was elevated at 635. Serum chemistry revealed a low chloride and a high carbon dioxide at 92 and 33, respectively, otherwise renal function and electrolytes were within normal limits. On the day of discharge, his fasting glucose was 187. DISCHARGE PLAN: Condition upon discharge is fair. Activity is ad kevin, but supervision for safety. Diet is regular but recommended dysphagia 2 chopped diet due to impulsivity with feeding. Date of next appointment: He is to follow up with Cardiothoracic surgeon, Dr. Brown on 06/24/2016. MEDICATIONS AT DISCHARGE: 1. Potassium chloride 10 mEq p.o. daily. 2. Acetaminophen 650 mg p.o. q.6 hours. 3. Aspirin 325 mg p.o. daily. 4. Tramadol 50-100 mg p.o. q.6 hours p.r.n. 5. Oxycodone 5-10 mg p.o. q.4 hours p.r.n. 6. Metformin 1000 mg p.o. twice daily. 7. Levofloxacin 750 mg p.o. daily at 10 a.m. through 06/27/2016. 8. Guaifenesin/dextromethorphan 10 mL p.o. q.4 hours p.r.n. 9. Glipizide 5 mg p.o. twice daily. 10. Senna 1-2 tablets p.o. twice daily p.r.n. 11. Polyethylene glycol 17 g p.o. daily. 12. Lisinopril 2.5 mg p.o. daily. 13. Insulin lispro per sliding scale. 14. Gabapentin 300 mg p.o. at bedtime. 15. Furosemide 40 mg p.o. twice daily. 16. Artificial Tears p.r.n. 17. Atorvastatin 40 mg p.o. daily. 18. Albuterol 2 puffs four times. ISSUES TO BE ADDRESSED WITH FOLLOWUP: 1. Functional status, mobility and activities of daily living. He will continue physical and occupational therapy after discharge and he can follow up with his primary care doctor as well regarding these issues. 2. Status post mitral valve replacement with fluid overload and possible congestive heart failure. He has followup with Dr. Brown the cardiovascular surgeon, and he will continue furosemide until followup with Dr. Brown or his primary care provider. 3. Diabetes mellitus type 2. His glycemic control should be assessed on his usual diet once he returns home. He has had a good response to glipizide as well as metformin, and this can be titrated. It is possible that he will not need insulin in the near term. 4. Hypoxia. He can follow up with Dr. Brown as well as his primary care provider. It is likely related to pneumonia, anemia, possible CHF and possible COPD. 5. Anemia. He can follow up with his primary care provider in 1-2 weeks with repeat blood tests regarding his blood counts. /[id number]/MODL Kelsie acc#, 06/30/16, tiny MUÑOZ
== END 2016-06-24 11:20 | disposition home health service (06) | DRG 949 ==
LOC: BREH 17:15
PROVIDERS: ADMIT Internal Medicine; ATTEND Internal Medicine
PROC: F07M3ZZ Motor Function Treatment of Musculoskeletal System - Whole Body (ICD-10-PCS; principal; 2016-06-17)
PROC: F08Z7ZZ Vocational Activities and Functional Community or Work Reintegration Skills Treatment (ICD-10-PCS; principal; 2016-06-17)
PROC: F0636ZZ Communicative/Cognitive Integration Skills Treatment of Neurological System - Whole Body (ICD-10-PCS; principal; 2016-06-17)
DX: Z48.812 Encounter for surgical aftercare following surgery on the circulatory system (principal); I69.334 Monoplegia of upper limb following cerebral infarction affecting left non-dominant side; R13.10 Dysphagia, unspecified; Z95.3 Presence of xenogenic heart valve; E66.01 Morbid (severe) obesity due to excess calories; E11.9 Type 2 diabetes mellitus without complications; E78.5 Hyperlipidemia, unspecified; I10 Essential (primary) hypertension; K21.9 Gastro-esophageal reflux disease without esophagitis; J90 Pleural effusion, not elsewhere classified; E87.1 Hypo-osmolality and hyponatremia; I50.9 Heart failure, unspecified; D64.9 Anemia, unspecified; R09.02 Hypoxemia
CPT/HCPCS: 92507-GN; 92522-GN; 92526; 97110-GP; 97116-GP; 97530-GO; 97530-GP; 97535-GO; G0009; J1815

== ENCOUNTER → 2016-06-24 | Outpatient (CLI) | payer OTHER, MEDICAID | LOC: FIMAGING 12:51 | PROVIDERS: ATTEND Thoracic Surgery (Cardiothoracic Vascular Surgery) | DX: Z48.812 Encounter for surgical aftercare following surgery on the circulatory system (principal); J44.9 Chronic obstructive pulmonary disease, unspecified; Z95.2 Presence of prosthetic heart valve ==

== ENCOUNTER 2016-07-02 16:53 | Emergency (ER) | payer OTHER, MEDICAID ==
[2016-07-02 17:08] VITALS: PULSE 105; RESP 20
--- NOTE | 2016-07-02 17:34 | CPEKG ---
Heart Rate: 103 RR Interval: 583 P-R Interval: 128 QRSD Interval: 98 QT Interval: 320 QTC Interval: 419 P [place]: 256 QRS [place]: -33 T Wave [place]: 44 EKG Severity - ABNORMAL ECG - EKG Impression: ECTOPIC ATRIAL TACHYCARDIA EKG Impression: LEFT AXIS DEVIATION Electronically Signed By: Wilian Smith 03-Jul-2016 00:03:13
--- NOTE | 2016-07-02 17:38 | EDPHY ---
H & P Time Seen by Provider: 07/02/16 17:37 HPI/ROS: Chief complaint. Chest pain HPI. 75-year-old male had mitral valve replacement surgery on June 06. He was discharged to [facility] and then has been home for about a week. Today he has had chest pain abdominal pain neck pain back pain. Cough. He says he has had a fever however his son says no and he has not had a fever here. Denies vomiting or diarrhea. Difficult to characterize his pain. No significant shortness of breath. ROS Constitutional. Fever Eyes. no problems with vision ENT. no sore throat, no nasal drainage Cardiovascular. Chest pain Respiratory. Cough Abdominal. Abdominal pain without vomiting or diarrhea . no problems urinating MS. Neck pain Skin. no rash Lymph. no swollen glands Neuro. no headache, no dizziness, no difficulty walking or with speech Past Medical/Surgical History: Past medical history is significant for prostate surgery, diabetes using insulin , CVA, mitral valve replacement Social History: , nonsmoker, no alcohol Smoking Status: Former smoker Physical Exam: General Appearance: Alert well-developed male moderate distress vital signs are stable Eyes: Pupils equal and round no pallor or injection. ENT, Mouth: Mucous membranes are moist. Respiratory: There are no retractions, lungs are clear to auscultation. Cardiovascular: Regular rate and rhythm. Gastrointestinal: Abdomen is soft and diffusely tender. No masses. No organomegaly. Normal bowel sounds Neurological: Awake and alert, sensory and motor exams grossly normal. Skin: Warm and dry, no rashes. Musculoskeletal: Neck is supple nontender. Extremities symmetrical, full range of motion. Psychiatric: Patient is oriented X 3, there is no agitation. Constitutional: Initial Vital Signs Temperature (C) 36.9 C 07/02/16 17:03 Heart Rate 105 H 07/02/16 17:03 Respiratory Rate 20 07/02/16 17:03 Blood Pressure 132/68 H 07/02/16 17:03 O2 Sat (%) 92 07/02/16 17:03 O2 Delivery Mode Room Air O2 (L/minute) 2 Allergies/Adverse Reactions: No Known Allergies Allergy (Verified 07/02/16 17:02) Home Medications: Medication Instructions Recorded Acetaminophen [Tylenol 325mg (*)] 650 mg PO Q6 #0 tab 06/13/16 Potassium Cl [Klor-Con 10 meq (RX)] 10 meq PO DAILY #0 tab 06/13/16 Carboxymethylcellulose 0.5% 1 cailin LEFTEYE Q6HRS #0 droperette 06/16/16 [Refresh Plus Drops 0.5%] traMADol [Ultram 50 mg (*)] 50 - 100 mg PO Q6HRS PRN #0 tab 06/16/16 Aspirin [Aspirin 325 mg (*)] 325 mg PO DAILY #0 tab 06/17/16 Albuterol [Proventil Inhaler HFA 2 puffs IH QID #1 mdi 06/23/16 (*)] Atorvastatin Calcium [Lipitor 40 40 mg PO DAILY #30 tab 06/23/16 mg (*)] Carboxymethylcellulose 0.5% 1 cailin EACHEYE Q6HRS PRN #0 06/23/16 [Refresh Plus Drops 0.5%] droperette Furosemide [Lasix 40 MG (*)] 40 mg PO BID AT 7AM AND 3PM #30 tab 06/23/16 Gabapentin [Neurontin 300 MG (*)] 300 mg PO HS #30 cap 06/23/16 Insulin Lispro [humALOG LISPRO 100 0 unit SC TIDMEAL #0 unit 06/23/16 units/ml (*)] Lisinopril [Zestril 2.5 mg (*)] 2.5 mg PO DAILY #30 tab 06/23/16 Polyethylene Glycol 3350 [Miralax 17 gm PO DAILY #0 pkt 06/23/16 17 gm (*)] Sennosides [Senokot] 1 - 2 tab PO BID PRN #0 tab 06/23/16 guaiFENesin/DEXTROMETHORPHAN 10 ml PO Q4HRS PRN #0 ml 06/23/16 [Robitussin Dm Oral Liquid (*)] levOFLOXACIN [Levofloxacin] 750 mg PO DAILY10 #6 tablet 06/23/16 metFORMIN HCL [Glucophage 500 mg 500 mg PO BIDMEAL #120 tab 06/23/16 (*)] oxyCODONE IR [Oxycodone Ir (*)] 5 - 10 mg PO Q4HRS PRN #30 tab 06/23/16 traMADol [Ultram 50 mg (*)] 50 - 100 mg PO Q6HRS PRN #60 tab 06/23/16 glipiZIDE [Glipizide] 5 mg PO BID #0 tablet 06/24/16 Medical Decision Making Procedures: IV normal saline, monitor. Morphine for pain. Zofran for nausea ED Course/Re-evaluation: Re-evaluation at 8:30 p.m. and patient is really without symptoms now. His initial troponin was somewhat bumped and I suspect that this is likely from his recent surgery. Repeat EKG is unchanged. Repeat troponin is less then originally. Re-evaluation again at 9:20 p.m.--patient is stable though somewhat tachycardic at 105-108. With brazer crawler torch I discussed imaging study results laboratory evaluation comp, EKG findings. The patient is offered admission however he declines. Risks and benefits are discussed and the patient is encouraged to come back should he be will worsen any way. He has an appointment with his regular physician in [place] tomorrow and they are encouraged to keep the appointment. They expressed understanding and agreement Differential Diagnosis: I was concerned about aortic dissection or both in the thoracic aorta and abdominal aorta with pain in chest abdomen and back. Patient has elevated troponins which are likely left over from his recent heart surgery. His troponin is decreasing on the 2nd blood drawn is been no change of EKG. I am concerned about also acute coronary syndrome, pneumonia, pulmonary embolus - Data Points Laboratory Results: Laboratory Results 07/02/16 17:35 07/02/16 17:35 07/02/16 07/02/16 07/02/16 20:42 20:42 17:35 WBC 6.18 10^3/uL 10^3/uL (3.80-9.50) RBC 3.83 10^6/uL L 10^6/uL (4.40-6.38) Hgb 10.4 g/dL L g/dL (13.7-17.5) Hct 33.3 % L % (40.0-51.0) MCV 86.9 fL fL (81.5-99.8) MCH 27.2 pg L pg (27.9-34.1) MCHC 31.2 g/dL L g/dL (32.4-36.7) RDW 14.3 % % (11.5-15.2) Plt Count 487 10^3/uL H 10^3/uL (150-400) MPV 9.1 fL fL (8.7-11.7) Neut % (Auto) 72.7 % % (39.3-74.2) Lymph % (Auto) 12.9 % L % (15.0-45.0) [place] % (Auto) 12.3 % % (4.5-13.0) Eos % (Auto) 1.1 % % (0.6-7.6) Baso % (Auto) 0.5 % % (0.3-1.7) Nucleat RBC Rel Count 0.0 % % (0.0-0.2) Absolute Neuts (auto) 4.49 10^3/uL 10^3/uL (1.70-6.50) Absolute Lymphs (auto) 0.80 10^3/uL L 10^3/uL (1.00-3.00) Absolute Monos (auto) 0.76 10^3/uL 10^3/uL (0.30-0.80) Absolute Eos (auto) 0.07 10^3/uL 10^3/uL (0.03-0.40) Absolute Basos (auto) 0.03 10^3/uL 10^3/uL (0.02-0.10) Absolute Nucleated RBC 0.00 10^3/uL 10^3/uL (0-0.01) Immature Gran % 0.5 % % (0.0-1.1) Immature Gran # 0.03 10^3/uL 10^3/uL (0.00-0.10) PT INR APTT VBG Lactic Acid 1.1 mmol/L mmol/L (0.7-2.1) Sodium Potassium Chloride Carbon Dioxide Anion Gap BUN Creatinine Estimated GFR Glucose Calcium Troponin I 0.042 ng/mL H ng/mL (0-0.034) NT-Pro-B Natriuret Pep Lipase Specimen Hemolysis 07/02/16 07/02/16 17:35 17:35 WBC RBC Hgb Hct MCV MCH MCHC RDW Plt Count MPV Neut % (Auto) Lymph % (Auto) [place] % (Auto) Eos % (Auto) Baso % (Auto) Nucleat RBC Rel Count Absolute Neuts (auto) Absolute Lymphs (auto) Absolute Monos (auto) Absolute Eos (auto) Absolute Basos (auto) Absolute Nucleated RBC Immature Gran % Immature Gran # PT 15.5 SEC H SEC (12.0-15.0) INR 1.23 H (0.83-1.16) APTT 30.3 SEC SEC (23.0-38.0) VBG Lactic Acid Sodium 139 mEq/L mEq/L (134-144) Potassium 5.0 mEq/L mEq/L (3.5-5.2) Chloride 99 mEq/L mEq/L (97-110) Carbon Dioxide 29 mEq/l mEq/l (22-31) Anion Gap 11 mEq/L mEq/L (8-16) BUN 22 mg/dL mg/dL (7-23) Creatinine 0.7 mg/dL mg/dL (0.7-1.3) Estimated GFR > 60 Glucose 266 mg/dL H mg/dL (70-100) Calcium 9.5 mg/dL mg/dL (8.5-10.4) Troponin I 0.045 ng/mL H ng/mL (0-0.034) NT-Pro-B Natriuret Pep 1040 pg/mL H pg/mL (0-450) Lipase 114.0 IU/L IU/L (23-300) Specimen Hemolysis 141 Medications Given: Discontinued Medications Morphine Sulfate (Morphine) 6 mg IVP EDNOW ONE Stop: 07/02/16 17:54 Last Admin: 07/02/16 18:15 Dose: 6 mg Ondansetron HCl (Zofran) 4 mg IVP EDNOW ONE Stop: 07/02/16 17:54 Last Admin: 07/02/16 18:16 Dose: 4 mg Departure - Departure Disposition: Home, Routine, Self-Care Clinical Impression: Chest pain Qualifiers: Chest pain type: unspecified Qualified Code(s): R07.9 - Chest pain, unspecified Condition: Good Instructions: Chest Pain (ED) Additional Instructions: Continue regular medications. Return tonight for worsening symptoms. Keep his follow-up appointment with your regular physician in [place] tomorrow Continue con ethel medicamentos regulares. Regrese esta noche si los sintomas empeoran. Acuda a lilly piyush de seguimiento maana con lilly doctor en [place]. Referrals: UNKNOWN,ANUPAMA [Other] - As per Instructions Print Language: Burundian
[2016-07-02] MEDS ORDERED: ONDANSETRON 4 MG/2 ML VIAL IVP ONE (17:53)
[2016-07-02 18:07] LABS: % IMMATURE GRANULYOCYTES 0.5 % (0.0-1.1); ABSOLUTE IMMATURE GRANULOCYTES 0.03 10^3/uL (0.00-0.10); ADD DIFF? NO; ADD MORPH? NO; ADD SCAN? NO; ATYPICAL LYMPHOCYTE FLAG 0 (0-99); FRAGMENT RBC FLAG 0 (0-99); HEMATOCRIT 33.3 % (40.0-51.0); HEMOGLOBIN 10.4 g/dL (13.7-17.5); LEFT SHIFT FLG 10 (0-99); LIPEMIA HEMOLYSIS FLAG 80 (0-99); MEAN CELL HEMOGLOBIN 27.2 pg (27.9-34.1); MEAN CELL HEMOGLOBIN CONCENTR. 31.2 g/dL (32.4-36.7); MEAN CELL VOLUME 86.9 fL (81.5-99.8); MEAN PLATELET VOLUME 9.1 fL (8.7-11.7); PLATELET CLUMPS FLAG 20 (0-99); PLATELET COUNT 487 10^3/uL (150-400); RED BLOOD CELL COUNT 3.83 10^6/uL (4.40-6.38); RED CELL DISTRIBUTION WIDTH 14.3 % (11.5-15.2)
[2016-07-02 18:08] LABS: ANION GAP 11 mEq/L (8-16); CALCIUM 9.5 mg/dL (8.5-10.4); CARBON DIOXIDE 29 mEq/l (22-31); CHLORIDE 99 mEq/L (97-110); CREATININE 0.7 mg/dL (0.7-1.3); GLOMERULAR FILTRATION RATE > 60; GLUCOSE 266 mg/dL (70-100); SODIUM 139 mEq/L (134-144); SPECIMEN HEMOLYSIS 141
[2016-07-02 18:27] LABS: APTT 30.3 SEC (23.0-38.0); INR 1.23 (0.83-1.16); PROTIME(PATIENT) 15.5 SEC (12.0-15.0)
[2016-07-02] MEDS ORDERED: IOPAMIDOL (ISOVUE 370) 100 ML BTL IV ONE (18:27)
[2016-07-02 18:35] LABS: TROPONIN I 0.045 ng/mL (0-0.034)
--- NOTE | 2016-07-02 20:49 | CPEKG ---
Heart Rate: 106 RR Interval: 566 P-R Interval: 136 QRSD Interval: 96 QT Interval: 324 QTC Interval: 431 P [place]: 266 QRS [place]: -39 T Wave [place]: 64 EKG Severity - ABNORMAL ECG - EKG Impression: ECTOPIC ATRIAL TACHYCARDIA EKG Impression: LEFT AXIS DEVIATION Electronically Signed By: Wilian Smith 03-Jul-2016 00:02:44
[2016-07-02 22:15] VITALS: BP 150/77; TEMP 97.7; O2SAT 96
== END 2016-07-02 22:15 | disposition home or self-care (01) ==
DX: R07.9 Chest pain, unspecified (principal); E11.9 Type 2 diabetes mellitus without complications; Z86.73 Personal history of transient ischemic attack (TIA), and cerebral infarction without residual deficits; Z79.82 Long term (current) use of aspirin; Z79.4 Long term (current) use of insulin; Z87.891 Personal history of nicotine dependence
CPT/HCPCS: 71275; 74177; 93005; 96374; 96375; 99285; J2405; Q9967

== ENCOUNTER → 2016-07-08 | Outpatient (CLI) | payer OTHER, MEDICAID | LOC: FIMAGING 11:47 | PROVIDERS: ATTEND Thoracic Surgery (Cardiothoracic Vascular Surgery) | DX: Z09 Encounter for follow-up examination after completed treatment for conditions other than malignant neoplasm (principal); Z95.2 Presence of prosthetic heart valve ==

== ENCOUNTER → 2016-08-21 | Outpatient (CLI) | payer OTHER, MEDICAID | LOC: BHLMT 11:00 | PROVIDERS: ATTEND Internal Medicine Cardiovascular Disease | DX: I38 Endocarditis, valve unspecified (principal); E78.5 Hyperlipidemia, unspecified; Z95.4 Presence of other heart-valve replacement; E11.65 Type 2 diabetes mellitus with hyperglycemia; I25.10 Atherosclerotic heart disease of native coronary artery without angina pectoris; I63.9 Cerebral infarction, unspecified; I10 Essential (primary) hypertension | CPT/HCPCS: 93005-PO ==